=== PATIENT | male | born 1980 | race Caucasian/White ===

== ENCOUNTER 2019-02-17 14:19 | Observation (INO) | payer MEDICAID, SELFPAY ==
[2019-02-17 14:40] VITALS: BMI 25.1
[2019-02-17 14:43] VITALS: BP 109/65; PULSE 73; RESP 16; TEMP 36.7; BMI 25.2
--- NOTE | 2019-02-17 15:07 | HP.PCM_ITS ---
Problem List (1) Opiate withdrawal Status: Acute (2) Hepatitis C Status: Chronic (3) Nicotine abuse Status: Chronic (4) Methamphetamine abuse Status: Chronic (5) Seizure Status: Chronic History of Present Illness Date of Admission: 02/17/19 Chief Complaint: Acute heroin withdrawal The patient is a 38 year old M past medical history of heroin abuse off and on over the past 20 years, also with a history of seizure, hepatitis C never treated, nicotine abuse, and occasional methamphetamine abuse. He presented to the medical stabilization program with acute heroin withdrawal. He is injecting heroin, about 1 g/day, for about the last month, and has bilateral AC area. He last used yesterday about 6 am. He has been through detox before, last was in [place]. He does also admit to using meth, last about 2 days ago. He smokes cigarettes about a half a pack per day and would like a patch. He does not drink alcohol. Current withdrawal symptoms include diarrhea, runny eyes, runny nose, hot and cold flashes, sweating, tremor, anxiety, stomach cramps. He plans to pursue inpatient treatment after discharge. [] Past Medical History Past Medical History (Chronic Problems): Chronic Problems Hepatitis C (Chronic) Nicotine abuse (Chronic) Methamphetamine abuse (Chronic) Seizure (Chronic) Allergies No Known Allergies Allergy (Verified 02/17/19 14:39) Psychiatric History: No pertinent psych hx Lives: Homeless Smoking Status: Current every day smoker Tobacco Use: Cigarettes, Chew Alcohol: None Drugs: Heroin, - - meth - *Family History Maternal History Items: No pertinent history Paternal History Items: No pertinent history Review of Systems Constitutional: Reports: - - hot/cold flashes. Denies: Chills, Fever, Weight Change HEENT: Denies: Head Aches, Sinus Congestion, Sinus Drainage Cardiovascular: Denies: Chest Pain, Palpitations Respiratory: Denies: Cough, Shortness of breath at rest, Sputum production Gastrointestinal: Reports: Diarrhea, - - abd cramping. Denies: Abdominal Pain, Nausea, Vomiting Genitourinary: Denies: Dysuria Musculoskeletal: Reports: - - body aches. Denies: Joint Pain, Joint Tenderness Skin: Denies: Rash, Wounds Neurological: Reports: Tremor. Denies: Focal weakness, Numbness, Tingling Psychiatric: Reports: Anxiety. Denies: Depression, Homicidal Ideations, Suicidal Ideations Hematologic/ Lymphatic: Denies: Easy Bruising, Easy Bleeding VTE Information - Inpt Only VTE Present on Admission: No VTE Mechan Device Prophylaxis: None Reason prophylaxis not ordered:: Procedure Not Indicated Patient Problems: Active and Suspected Problems Opiate withdrawal (Acute) - Physical Exam General: Alert, Oriented x3, Cooperative HEENT: Atraumatic, PERRLA, EOMI, Normocephalic Neck: Supple, No JVD, Negative Carotid Bruits Lungs: Clear to auscultation, Normal air movement Cardiovascular: Regular rate, No murmurs Abdomen: Bowel Sounds Present, Soft, Non Tender Extremities: No edema, Capillary Refill Less than 3 Seconds, - - Bilateral upper extremity injection sites, do not appear acutely infected. Skin: No rashes, No breakdown Musculoskeletal: No Tenderness to Palpation of Joints or Extremities Neurological: Cranial nerves II-XII grossly intact Psych/Mental Status: Normal Affect, Appropriate Weight: 190 lb 11.2 oz Body Mass Index (BMI) 25.1 Assessment/Plan All Active Problems Opiate withdrawal (Acute) 1. Acute heroin withdrawal-uses 1 g/day intravenous, last use yesterday at about 6 AM. He initiate heroin withdrawal protocol. Injection sites not appear infected at this time. 2. Nicotine abuse-1/2 pack/day smoker-desires patch. 3. History of seizures-continue home medications 4. Meth abuse-last used 2 days ago. 5. History of hepatitis C-never treated DVT prophylaxis: Early ambulation Medical stabilization day 1 This patient was seen by Nilesh Escobedo PA-C under the supervision of Doctor Grimes.
[2019-02-17] MEDS: Buprenorphine HCl 2 MG TAB.SUBL SL ×2 (15:11→22:40)
[2019-02-17] MEDS: Ibuprofen 600 MG Tablet PO (15:11)
[2019-02-17] MEDS: Methocarbamol 750 MG Tablet PO ×2 (15:11→22:18)
[2019-02-17 18:05] VITALS: BP 107/72; PULSE 82; RESP 16; TEMP 36.8
[2019-02-17 21:49] VITALS: BP 115/79; PULSE 97; RESP 16; TEMP 36.6
[2019-02-17] MEDS: Acetaminophen 500 MG Tablet PO (22:18)
[2019-02-17] MEDS: levETIRAcetam 250 MG Tablet PO (22:19)
[2019-02-17] MEDS: Pregabalin 75 MG Capsule 150 MG PO (22:19)
[2019-02-17] MEDS: chlordiazePOXIDE 25 MG Capsule PO (22:19)
[2019-02-18 02:00] VITALS: BP 111/73; PULSE 88; RESP 16; TEMP 36.4
[2019-02-18] MEDS: MELATONIN 3 MG TABLET PO ×2 (02:16→22:05)
[2019-02-18] MEDS: Ibuprofen 600 MG Tablet PO ×2 (02:17→10:22)
[2019-02-18 06:00] VITALS: BP 105/58; PULSE 61; RESP 16; TEMP 35.9
[2019-02-18 06:43] VITALS: O2SAT 98
[2019-02-18] MEDS: Buprenorphine HCl 2 MG TAB.SUBL SL ×3 (06:45→22:05)
[2019-02-18] MEDS: Pregabalin 75 MG Capsule 150 MG PO ×3 (06:45→22:04)
[2019-02-18] MEDS: Methocarbamol 750 MG Tablet PO ×3 (08:15→22:04)
[2019-02-18] MEDS: cloNIDine HCl 0.1 MG Tablet PO (08:15)
[2019-02-18] MEDS: Dicyclomine 10 MG Capsule 20 MG PO (08:15)
[2019-02-18] MEDS: Acetaminophen 500 MG Tablet PO (08:15)
[2019-02-18 08:44] VITALS: BP 111/74; PULSE 72; RESP 16; TEMP 36.4
[2019-02-18] MEDS: levETIRAcetam 250 MG Tablet PO ×2 (10:22→22:04)
[2019-02-18] MEDS: chlordiazePOXIDE 25 MG Capsule PO (10:22)
--- NOTE | 2019-02-18 14:54 | PN_ITS ---
Patient Problems: Active and Suspected Problems Opiate withdrawal (Acute) Subjective: Patient is a 38-year-old male with a past medical history of bipolar 2 disorder, polysubstance abuse, nicotine dependence, hepatitis C and a seizure disorder (currently on Keppra and Gabapentin with no seizure for 6 months). He admitted to the PA at admission that he has been using heroin and methamphetamine but he tells me today that he has been using Klonopin he obtains off the street. He last used a few days ago and he has been having visual hallucinations. He has felt suicidal several times over the past year but has not had any suicide attempts. He does not feel like he wants to hurt anyone at the hospital. He feels that if he is to beat the addictions then he needs to put himself in god's hand. He was talking with pastor Carlson when I entered the room. His plan is to go to a [facility] based program at [place]. He was on Wellbutrin but does not have this and would like to have it added to his drug Regimen. He is not currently on a mood stabilizer....has been on Tegretol in the past. No lab was done at admission Having hallucinations. Did not sleep well last night. No diarrhea and no N/V. feeling anxious. Objective: PHYSICAL EXAM: GENERAL: alert, oriented X 3, Cooperative, appears on edge and is a little fidgety ORAL: moist mucosa, no mucosal lesions NECK: No JVD, supple, trachea midline LUNGS: CTA, symmetric chest expansion HEART: RRR, Normal S1 and S2, no rub, no gallop ABDOMEN: soft, NT, ND, BS present, no guarding with palpation, track ray on both UE's....no evidence cellulitis or abscess EXTREMITIES: no edema, no cyanosis, no calf tenderness SKIN: No rashes, no breakdown NEUROLOGIC: no focal neurologic deficits PSYCH: appropriate, normal affect, pleasant, and respectful - Physical Exam Vital Signs Temp Pulse Resp BP Pulse Ox 97.6 F L 72 16 111/74 98 02/18/19 08:44 02/18/19 08:44 02/18/19 08:44 02/18/19 08:44 02/18/19 06:43 Oxygen Delivery Method Room Air Weight: 190 lb 11.198 oz Body Mass Index (BMI) 25.1 Intake and Output for Last 24 Hours 02/16/19 02/17/19 02/18/19 23:59 23:59 23:59 Intake Total 440 / 440 Balance 440 / 440 Medical Necessity - Tobacco Use Smoking Status: Current every day smoker Tobacco Use: Cigarettes, Chew Assessment/Plan All Active Problems Opiate withdrawal (Acute) Impressions 1. acute opiate and benzo withdrawal 2. pt reports he has Bipolar 2 disorder 3. meth use - chronic and heavy for the past 2 years. 4. visual hallucinations - may be due to acute benzo withdrawal 5. Hepatitis C 6. Tobacco dependence 7. Seizure disorder DC chlordiazepoxide Start Klonopin 0.5 mg p.o. every 8 hours and this will need to be tapered over the next few weeks Continue Keppra and Lyrica, gabapentin has been discontinued. He should not be taking both CMP, CBC, hepatitis ABC profile, HIV, urine drug screen Start a low dose of Wellbutrin.......watch for manic sx.......is he truly bipolar or does he have psychosis related to heavy meth use? If the hallucinations do not resolve with Klonopin will consider starting an anti-ps ychotic....like Abilify which will treat atypical depression and chest pain Code Visit Inpatient E&M: 58563 Subs Hosp L2
[2019-02-18 15:22] VITALS: BP 114/67; PULSE 74; RESP 16; TEMP 36.7
[2019-02-18] MEDS: clonazePAM 0.5 MG Tablet PO ×2 (15:26→22:04)
[2019-02-18 15:30] LABS: Absolute Lymphocyte Count 2.43 X10^3/ul (0.83-4.51); Absolute Neutrophil Count 2.6 X10^3/uL (2.0-7.7); Basophil# 0.01 X10^3/uL; Basophil% 0.2 % (0-1); Eosinophil# 0.14 X10^3/uL; Eosinophils% 2.6 % (0-5); Hematocrit 38.8 % (40-54); Hemoglobin 13.4 g/dl (13.0-16.5); Lymphocyte # 2.43 X10^3/ul (4.0); Lymphocyte % 44.4 % (19-41); Mean Corp Hgb Conc 34.5 g/gl (32-36); Mean Corpuscular Hgb 30.7 pg (27.0-32.0); Mean Corpuscular Volume 88.8 fL (80-94); Mean Platelet Vol. 9.1 fl (6.2-12.0); Monocyte# 0.32 X10^3/uL; Monocyte% 5.9 % (0-10); Neutrophil # 2.55 X10^3/uL (2.7-7.7); Neutrophil % 46.5 % (47-70); Platelet Count 198 K/mm3 (150-450); RBC Distribution Width CV 13.4 % (11.6-14.6); RBC Distribution Width SD 43.2 fl (35.1-43.9); Red Blood Count 4.37 M/mm3 (4.6-6.2); White Blood Count 5.5 K/mm3 (4.4-11.0)
[2019-02-18 15:47] LABS: POSITIVE COUNT NO; POSITIVE DIFFERENTIAL NO; POSITIVE MORPHOLOGY NO
[2019-02-18 15:56] LABS: ALB/GLOB Ratio 1.2 RATIO (0.9-2.4); AST(SGOT) 32 U/L (15-37); Alanine Aminotransfer ALT/SGPT 85 U/L (16-61); Albumin, Serum 3.7 g/dL (3.2-5.0); Alkaline Phosphatase 57 U/L (45-117); Anion Gap 5 (5-15); BUN 18 mg/dL (7-18); BUN/Creat Ratio 16.2 RATIO (10-20); Calcium,Total 8.3 mg/dL (8.5-10.1); Chloride 103 mmol/L (98-107); Creatinine, Serum 1.11 mg/dL (0.70-1.30); EST Glomerular Filtration Rate 79 mL/min (>60); Est Glom Filt Rate - Afr Amer 95 mL/min (>60); Estimated Creatinine Clearance 101.97 ml/min; Globulin 3.1 g/dL (2.2-4.2); Glucose 92 mg/dL (74-106); Potassium 3.7 mmol/L (3.5-5.1); Protein, Total 6.8 g/dL (6.4-8.2); Sodium Level 137 mmol/L (136-145)
--- NOTE | 2019-02-18 17:13 | CHAPLAIN ---
Type of Pastoral Visit _x__ Initial Visit ___ Follow-up Visit ___ On-call Visit ___ General Patient Visit ___ Spiritual Assessment ___ Family Conference ___ Bereavement ___ Rapid Response ___ Code Blue ___ Other (describe below) Pastoral Care Referral From _x__ Patient ___ Family ___ Nurse ___ Physician ___ Occupational Therapist Per Diem ___ Personal Injury Specialist ___ Other (describe below) Sacrament/Intervention _x__ Active listening ___ Anointing ___ Amish ___ Bereavement ___ Communion _x__ Michelle exploration ___ _x__ Life review _x__ Prayer ___ Reconciliation ___ Sacrament of Sick _x__ Supportive presence ___ Wedding ___ Other (describe below) Pastoral Comments long conversation of above interventions; contacted previously attended [facility] by leaving a message as requested by patient; gave patient a Bible as requested by pt;
[2019-02-18 21:51] VITALS: BP 106/69; PULSE 81; RESP 16; TEMP 36.3
[2019-02-18] MEDS: buPROPion (SR) 100 MG TABLET.SA PO (22:04)
[2019-02-18 22:48] LABS: Amphetamine Urine VISTA POSITIVE (<1000 ng/mL); Barbiturate Urine VISTA NEGATIVE (< 200 ng/mL); Benzodiazepine Urine VISTA POSITIVE (< 200 ng/mL); Cocaine Urine VISTA NEGATIVE (< 300 ng/mL); Ecstacy Urine VISTA NEGATIVE (< 500 ng/mL); Methadone Urine VISTA NEGATIVE (< 300 ng/mL); PCP Urine VISTA NEGATIVE (< 25 ng/mL); THC Urine VISTA NEGATIVE (< 50 ng/mL); Vista UDS pH Range 6
[2019-02-19 03:34] VITALS: BP 108/65; PULSE 80; RESP 14; TEMP 36.5
[2019-02-19] MEDS: Pregabalin 75 MG Capsule 150 MG PO (06:12)
[2019-02-19] MEDS: Buprenorphine HCl 2 MG TAB.SUBL SL ×2 (06:12→19:09)
[2019-02-19] MEDS: clonazePAM 0.5 MG Tablet PO ×3 (06:12→21:43)
[2019-02-19 08:44] VITALS: BP 115/64; PULSE 74; RESP 16; TEMP 36.4
[2019-02-19] MEDS: levETIRAcetam 250 MG Tablet PO ×2 (09:01→21:43)
[2019-02-19] MEDS: cloNIDine HCl 0.1 MG Tablet PO ×3 (09:01→17:16)
[2019-02-19] MEDS: Ibuprofen 600 MG Tablet PO ×2 (09:01→17:16)
[2019-02-19] MEDS: Methocarbamol 750 MG Tablet PO ×3 (09:01→21:46)
[2019-02-19] MEDS: buPROPion (SR) 100 MG TABLET.SA PO ×2 (09:01→21:43)
--- NOTE | 2019-02-19 12:52 | PN_ITS ---
Patient Problems: Active and Suspected Problems Opiate withdrawal (Acute) Subjective: All events of the past 24 hours of been reviewed. Afebrile with stable vital signs. All lab was personally reviewed. CBC is unremarkable. CMP was remarkable for an ALT of 85. Bilirubin, AST and alkaline phosphatase are all normal. Urine drug screen is positive for amphetamines and benzos. Hepatitis panel is pending. Patient continues to have visual and auditory hallucinations but they are a little less with Klonopin. He has suicidal ideation and at times has had homicidal ideation. Has been off medication to treat BPD Objective: PHYSICAL EXAM: GENERAL: alert, oriented X 3, Cooperative, appears on edge and is a fidgety, got angry when the [facility] rep told him they would not accept him at [facility] if he is on Benzo's and he sat forward in bed and got louder I think he has the potential to be aggressive if provoked. ORAL: moist mucosa, no mucosal lesions NECK: No JVD, supple, trachea midline LUNGS: CTA, symmetric chest expansion HEART: RRR, Normal S1 and S2, no rub, no gallop ABDOMEN: soft, NT, ND, BS present, no guarding with palpation, track ray on both UE's....no evidence cellulitis or abscess EXTREMITIES: no edema, no cyanosis, no calf tenderness SKIN: No rashes, no breakdown NEUROLOGIC: no focal neurologic deficits PSYCH: on Edge, angry - Physical Exam Vital Signs Temp Pulse Resp BP Pulse Ox 97.5 F L 74 16 115/64 98 02/19/19 08:44 02/19/19 08:44 02/19/19 08:44 02/19/19 08:44 02/18/19 06:43 Oxygen Delivery Method Room Air Weight: 190 lb 11.198 oz Body Mass Index (BMI) 25.1 Intake and Output for Last 24 Hours 02/17/19 02/18/19 02/19/19 23:59 23:59 23:59 Intake Total 1200 / 1200 800 / 800 Balance 1200 / 1200 800 / 800 Laboratory Tests Past 24 Hrs 02/18/19 02/18/19 02/18/19 15:15 15:15 15:15 WBC 5.5 RBC 4.37 L Hgb 13.4 Hct 38.8 L MCV 88.8 MCH 30.7 MCHC 34.5 RDW 13.4 RDW Differential 43.2 Plt Count 198 MPV 9.1 Immature Gran % (Auto) 0.400 Neut % (Auto) 46.5 L Lymph % (Auto) 44.4 H Haywood % (Auto) 5.9 Eos % (Auto) 2.6 Baso % (Auto) 0.2 Absolute Neuts (auto) 2.6 Absolute Lymphs (auto) 2.43 Total Counted Not Reportable Sodium 137 Potassium 3.7 Chloride 103 Carbon Dioxide 29.0 Anion Gap 5 BUN 18 Creatinine 1.11 Estim Creat Clear Calc 101.97 Est GFR (MDRD) Af Amer 95 Est GFR (MDRD) Non-Af 79 BUN/Creatinine Ratio 16.2 Glucose 92 Calcium 8.3 L Total Bilirubin 0.40 AST 32 ALT 85 H Alkaline Phosphatase 57 Total Protein 6.8 Albumin 3.7 Globulin 3.1 Albumin/Globulin Ratio 1.2 Urine Opiates Screen Urine Methadone Screen Ur Barbiturates Screen Ur Phencyclidine Scrn Ur Amphetamines Screen U Methamphetamin-MDMA U Benzodiazepines Scrn Urine Cocaine Screen U Cannabinoids Screen Ur Drug Screen Comment Hepatitis A IgM Ab Pending Hepatitis A Ab Total Pending Hep Bs Antigen Pending Hep B Core Total Ab Pending Hep B Core IgM Ab Pending 02/18/19 22:18 WBC RBC Hgb Hct MCV MCH MCHC RDW RDW Differential Plt Count MPV Immature Gran % (Auto) Neut % (Auto) Lymph % (Auto) Haywood % (Auto) Eos % (Auto) Baso % (Auto) Absolute Neuts (auto) Absolute Lymphs (auto) Total Counted Sodium Potassium Chloride Carbon Dioxide Anion Gap BUN Creatinine Estim Creat Clear Calc Est GFR (MDRD) Af Amer Est GFR (MDRD) Non-Af BUN/Creatinine Ratio Glucose Calcium Total Bilirubin AST ALT Alkaline Phosphatase Total Protein Albumin Globulin Albumin/Globulin Ratio Urine Opiates Screen NEGATIVE Urine Methadone Screen NEGATIVE Ur Barbiturates Screen NEGATIVE Ur Phencyclidine Scrn NEGATIVE Ur Amphetamines Screen POSITIVE H U Methamphetamin-MDMA NEGATIVE U Benzodiazepines Scrn POSITIVE H Urine Cocaine Screen NEGATIVE U Cannabinoids Screen NEGATIVE Ur Drug Screen Comment Hepatitis A IgM Ab Hepatitis A Ab Total Hep Bs Antigen Hep B Core Total Ab Hep B Core IgM Ab Medical Necessity - Tobacco Use Smoking Status: Current every day smoker Tobacco Use: Cigarettes, Chew Assessment/Plan All Active Problems Opiate withdrawal (Acute) Impressions 1. acute opiate and benzo withdrawal 2. pt reports he has Bipolar 2 disorder 3. meth use - chronic and heavy for the past 2 years. 4. visual and auditory hallucinations - I believe due to psychosis.....due to BPD or chronic meth use 5. Hepatitis C 6. Tobacco dependence 7. Seizure disorder Continue Klonopin 0.5 mg p.o. every 8 hours-will need to be tapered slowly over the next few weeks Continue Keppra and change Lyrica to Gabapentin D/W Radha from [facility] and we both feel that he is more appropriate for a dual diagnosis facility to stabilize the mental health issues/psychosis prior to being considered for [facility] Continue the Suboxone taper for acute opiate withdrawal Code Visit Inpatient E&M: 58478 Subs Hosp L2
[2019-02-19 13:55] VITALS: BP 111/70; PULSE 75; RESP 18; TEMP 36.4
[2019-02-19 14:00] VITALS: PULSE 80
[2019-02-19] MEDS: Gabapentin 600 MG Tablet PO ×2 (14:41→21:43)
--- NOTE | 2019-02-19 15:27 | CHAPLAIN ---
Type of Pastoral Visit ___ Initial Visit _x__ Follow-up Visit ___ On-call Visit ___ General Patient Visit ___ Spiritual Assessment ___ Family Conference ___ Bereavement ___ Rapid Response ___ Code Blue ___ Other (describe below) Pastoral Care Referral From _x__ Patient ___ Family ___ Nurse ___ Physician ___ Associate Professor Of Chemistry ___ Product Inspection Coordinator ___ Other (describe below) Sacrament/Intervention _x__ Active listening ___ Anointing ___ Judaism ___ Bereavement ___ Communion ___ Michelle exploration ___ ___ Life review _x__ Prayer ___ Reconciliation ___ Sacrament of Sick _x__ Supportive presence ___ Wedding ___ Other (describe below) Pastoral Comments
[2019-02-19 17:10] VITALS: BP 119/68; PULSE 81; RESP 18; TEMP 36.4
[2019-02-19 21:35] VITALS: BP 104/69; PULSE 79; RESP 18; TEMP 36.8
[2019-02-19] MEDS: MELATONIN 3 MG TABLET PO (21:43)
[2019-02-20 05:07] LABS: HEPATITIS B SURFACE AG Negative (Negative); Hepatitis A IgM Antibody Negative (Negative); Hepatitis B Core AB IgM Negative (Negative); Hepatitis B Core Ab Total Negative (Negative); Hepatitis C Ab >11.0 s/co ratio (0.0-0.9)
[2019-02-20] MEDS: Buprenorphine HCl 2 MG TAB.SUBL SL (06:13)
[2019-02-20] MEDS: Gabapentin 600 MG Tablet PO ×3 (06:13→21:15)
[2019-02-20] MEDS: clonazePAM 0.5 MG Tablet PO ×3 (06:13→21:15)
[2019-02-20] MEDS: Methocarbamol 750 MG Tablet PO (08:06)
[2019-02-20] MEDS: Ibuprofen 600 MG Tablet PO (08:06)
[2019-02-20] MEDS: cloNIDine HCl 0.1 MG Tablet PO (08:06)
[2019-02-20] MEDS: levETIRAcetam 250 MG Tablet PO ×2 (08:06→21:15)
[2019-02-20] MEDS: buPROPion (SR) 100 MG TABLET.SA PO ×2 (08:06→21:16)
[2019-02-20 08:11] VITALS: BP 124/71; PULSE 75; RESP 16; TEMP 36.7
--- NOTE | 2019-02-20 11:55 | NEWVISION ---
Addendum entered by Myrna Montez 02/20/19 12:41: Patient will need transportation provided by [facility]. When DC order is in have [facility] . Request hospital discharge ride. Patient's member ID is [id number]. He is going to the following address: [address] [place] [address]. [place] [phone]. Make sure to give NURSE PHONE NUMBER as a contact for [facility] to let you know the ride is here since patient's phone is not working. Original Note: Patient to go to [facility] upon discharge. patient will need to be transported by [facility] discharge services. a nurse to nurse will need to be completed. [facility] requested ETA when patient leaves for admissions. , request admissions.
[2019-02-20 12:43] VITALS: BP 130/72; PULSE 81; RESP 18; TEMP 36.5
[2019-02-20 14:27] LABS: Hep B Surface Antibodies Reactive (.)
[2019-02-20 14:29] LABS: Hepatitis A AB, Total Positive (Negative)
--- NOTE | 2019-02-20 15:22 | DCINST_ITS ---
- Discharge Diagnoses Current Active Problems: Current Active and Chronic Problems Opiate withdrawal (Acute) Hepatitis C (Chronic) Nicotine abuse (Chronic) Methamphetamine abuse (Chronic) Seizure (Chronic) You will use the following diet at home:: No restrictions Discharge Activity: Return to Normal Activity Additional Instructions: Klonopin will need tapered slowly over the next few weeks. Allergies/Adverse Reactions: Allergies No Known Allergies Allergy (Verified 02/17/19 14:39) Medications to take at Discharge Gabapentin 600 mg PO TID 02/17/19 Levetiracetam 250 mg PO BID 02/17/19 Clonazepam [Klonopin] 0.5 mg PO Q8 tablet 02/20/19 Nicotine [Nicoderm Cq] 21 mg TRANSDERM. DAILY patch 02/20/19 buPROPion SR [Wellbutrin Sr] 100 mg PO BID tablet.sa 02/20/19 Primary Care Physician: Care Physician,No Primary [Primary Care Provider] - Please follow up with your Primary Care Physician in: 1 Week following DC from inpatient treatment Test Results: Test results from this visit will be discussed in further detail at your follow- up appointment, if applicable. Proposed Discharge Date: 02/20/19
--- NOTE | 2019-02-20 15:24 | PCM.DC.SUM ---
Discharge Date and Diagnosis Date of Admission: 02/17/19 Date of Discharge: 02/20/19 - Primary Discharge Diagnosis Active and Suspected Problems 1. Acute Opiate and benzodiazepine withdrawal 2. Bipolar 2 disorder 3. Methamphetamine abuse 4. Hepatitis C/Hepatitis A 5. History of seizures 6. Tobacco dependence - Secondary Discharge Diagnosis Chronic Problems Hepatitis C (Chronic) Nicotine abuse (Chronic) Methamphetamine abuse (Chronic) Seizure (Chronic) Hospital Course and Treatment Operations: None Procedures: None Summary of Care Provided: The patient is a 38 year old M admitted 02/17/2019 due to acute heroin withdrawal. 1. Acute Opiate and benzodiazepine withdrawal-patient completed medical stabilization per protocol. DC to [facility]. Patient was started on Klonopin 0.5 mg every 8 hours for benzo withdrawal which will need tapered slowly over the next few weeks. 2. Bipolar 2 disorder-initiated on Wellbutrin. Further management per inpatient psychiatric facility. 3. Methamphetamine abuse 4. Hepatitis C/Hepatitis A-hepatitis panel positive for hepatitis A antibody and hepatitis C antibody. 5. History of seizures-on Keppra and gabapentin for seizure per patient. 6. Tobacco dependence-encouraged tobacco cessation. Nicotine replacement patch. Patient seen and examined prior to discharge. Physical assessment as noted below. Patient is stable for discharge with follow up recommendations as noted above. This patient was seen by MARYANA Ontiveros under the supervision of Dr. Mike. - Physical Exam General: Alert, Oriented x3, Cooperative HEENT: Atraumatic, PERRLA, EOMI, Normocephalic Neck: Supple, No JVD, Negative Carotid Bruits Lungs: Clear to auscultation, Normal air movement Cardiovascular: Regular rate, Regular Rhythm, Normal S1, Normal S2, No murmurs Abdomen: Bowel Sounds Present, Soft, Non Tender, Non-Distended Extremities: No clubbing, No cyanosis, No edema, Capillary Refill Less than 3 Seconds Skin: - - Track ray BL upper extremities. Musculoskeletal: No Tenderness to Palpation of Joints or Extremities Neurological: Cranial nerves II-XII grossly intact, Neuro grossly intact Psych/Mental Status: Impulsive, Restless Vital Signs Temp Pulse Resp BP Pulse Ox 97.7 F L 81 18 130/72 H 98 02/20/19 12:43 02/20/19 12:43 02/20/19 12:43 02/20/19 12:43 02/18/19 06:43 Oxygen Delivery Method Room Air Weight: 190 lb 11.198 oz Body Mass Index (BMI) 25.1 Intake and Output for Last 24 Hours 02/18/19 02/19/19 02/20/19 23:59 23:59 23:59 Intake Total 1200 / 1200 800 / 800 480 / 480 Balance 1200 / 1200 800 / 800 480 / 480 Laboratory Tests Past 24 Hrs 02/18/19 15:15 Hepatitis A IgM Ab Negative Hepatitis A Ab Total Positive H Hep Bs Antigen Negative Hep B Core Total Ab Negative Hep B Core IgM Ab Negative Hepatitis C Ab Confirm >11.0 H Discharge Diet: No Restrictions Discharge Activity: Return to Normal Activity Home Medications: Medications to take at Discharge Gabapentin 600 mg PO TID 02/17/19 Levetiracetam 250 mg PO BID 02/17/19 Clonazepam [Klonopin] 0.5 mg PO Q8 tablet 02/20/19 Nicotine [Nicoderm Cq] 21 mg TRANSDERM. DAILY patch 02/20/19 buPROPion SR [Wellbutrin Sr] 100 mg PO BID tablet.sa 02/20/19 Primary Care Physician: Care Physician,No Primary [Primary Care Provider] - Please follow up with your Primary Care Physician in: 1 Week following DC from inpatient treatment Disposition: Inpatient mental health facility Minutes spent on discharge:: 35 Patient Condition:: Stable Medical Necessity - Tobacco Use Smoking Status: Current every day smoker Tobacco Use: Cigarettes, Chew Meaningful Use Info Meaningful Use Diagnoses (Choose all that apply): None applicable
--- NOTE | 2019-02-20 15:28 | DS.PCM_ITS ---
Addendum entered and electronically signed by MARYANA Ontiveros 02/21/19 14:32: Code Visit Discharge delayed due to difficulty obtaining transportation to inpatient facility. Hospital course and physical examination remains the same as previously documented. Discharge date 02/21/2019. Physical assessment as docu mented below. This patient was seen by MARYANA Ontiveros under the supervision of Dr. Mike. Original Note: Discharge Date and Diagnosis Date of Admission: 02/17/19 Date of Discharge: 02/20/19 - Primary Discharge Diagnosis Active and Suspected Problems 1. Acute Opiate and benzodiazepine withdrawal 2. Bipolar 2 disorder 3. Methamphetamine abuse 4. Hepatitis C/Hepatitis A 5. History of seizures 6. Tobacco dependence - Secondary Discharge Diagnosis Chronic Problems Hepatitis C (Chronic) Nicotine abuse (Chronic) Methamphetamine abuse (Chronic) Seizure (Chronic) Hospital Course and Treatment Operations: None Procedures: None Summary of Care Provided: The patient is a 38 year old M admitted 02/17/2019 due to acute heroin withdrawal. 1. Acute Opiate and benzodiazepine withdrawal-patient completed medical stabilization per protocol. DC to [facility] inpatient. Patient was started on Klonopin 0.5 mg every 8 hours for benzo withdrawal which will need tapered slowly over the next few weeks. 2. Bipolar 2 disorder-initiated on Wellbutrin. Further management per inpatient psychiatric facility. 3. Methamphetamine abuse 4. Hepatitis C/Hepatitis A-hepatitis panel positive for hepatitis A antibody and hepatitis C antibody. 5. History of seizures-on Keppra and gabapentin for seizure per patient. 6. Tobacco dependence-encouraged tobacco cessation. Nicotine replacement patch. Patient seen and examined prior to discharge. Physical assessment as noted below. Patient is stable for discharge with follow up recommendations as noted above. This patient was seen by MARYANA Ontiveros under the supervision of Dr. Mike. - Physical Exam General: Alert, Oriented x3, Cooperative HEENT: Atraumatic, PERRLA, EOMI, Normocephalic Neck: Supple, No JVD, Negative Carotid Bruits Lungs: Clear to auscultation, Normal air movement Cardiovascular: Regular rate, Regular Rhythm, Normal S1, Normal S2, No murmurs Abdomen: Bowel Sounds Present, Soft, Non Tender, Non-Distended Extremities: No clubbing, No cyanosis, No edema, Capillary Refill Less than 3 Seconds Skin: - - Track ray BL upper extremities. Musculoskeletal: No Tenderness to Palpation of Joints or Extremities Neurological: Cranial nerves II-XII grossly intact, Neuro grossly intact Psych/Mental Status: Impulsive, Restless Vital Signs Temp Pulse Resp BP Pulse Ox 97.7 F L 81 18 130/72 H 98 02/20/19 12:43 02/20/19 12:43 02/20/19 12:43 02/20/19 12:43 02/18/19 06:43 Oxygen Delivery Method Room Air Weight: 190 lb 11.198 oz Body Mass Index (BMI) 25.1 Intake and Output for Last 24 Hours 02/18/19 02/19/19 02/20/19 23:59 23:59 23:59 Intake Total 1200 / 1200 800 / 800 480 / 480 Balance 1200 / 1200 800 / 800 480 / 480 Laboratory Tests Past 24 Hrs 02/18/19 15:15 Hepatitis A IgM Ab Negative Hepatitis A Ab Total Positive H Hep Bs Antigen Negative Hep B Core Total Ab Negative Hep B Core IgM Ab Negative Hepatitis C Ab Confirm >11.0 H Discharge Diet: No Restrictions Discharge Activity: Return to Normal Activity Home Medications: Medications to take at Discharge Gabapentin 600 mg PO TID 02/17/19 Levetiracetam 250 mg PO BID 02/17/19 Clonazepam [Klonopin] 0.5 mg PO Q8 tablet 02/20/19 Nicotine [Nicoderm Cq] 21 mg TRANSDERM. DAILY patch 02/20/19 buPROPion SR [Wellbutrin Sr] 100 mg PO BID tablet.sa 02/20/19 Primary Care Physician: Care Physician,No Primary [Primary Care Provider] - Please follow up with your Primary Care Physician in: 1 Week following DC from inpatient treatment Disposition: Inpatient mental health facility Minutes spent on discharge:: 35 Patient Condition:: Stable Medical Necessity - Tobacco Use Smoking Status: Current every day smoker Tobacco Use: Cigarettes, Chew Meaningful Use Info Meaningful Use Diagnoses (Choose all that apply): None applicable
--- NOTE | 2019-02-20 16:17 | NURSING ---
PHONED [phone] DIRECTED IN PRIOR NOTE. SPOKE WITH LUIS WHO TRANSFERRED CALL TO SHERI, WHO THEN TRANSFERED PHONE CALL TO DAHLIA. DAHLIA INDICATES THAT SHE NEEDS FACILITY NPI NUMBER TO MOVE FORWARD WITH ANYTHING FURTHER, INFORMED SAID NURSE UNABLE TO VERIFY FACILITY NPI NUMBER, DAHLIA INDICATES TO HAVE PT PHONE AND ASK TO SPEAK WITH [employer] AND THEN HE WILL BE TRANSFERRED TO TRANSPORTATION DEPARTMENT. NURSE BACK TO PT ROOM TO INFORM PT OF ABOVE- INFORMED PT THAT HE NEEDS TO PHONE INSURANCE COMPANY AND NUMBER PROVIDED TO PT ALONG WITH ADDRESS OF FACILITY PT GOING TO. UPON ENTERING THE ROOM, PT STATES I HAVE SOME MEDS IN THE [place]. SAID NURSE LOOKED IN MED [place]RAW[place]- NO HOME MEDICATIONS IN EITHER [place] AND PT INFORMED OF SUCH, PT STATES 'WELL SOMEONE WAS IN IN [place] AND SAID I HAD MEDS TO TAKE HOME WITH ME. INFORMED PT THAT MEDS IN [place] ARE NOT FOR PT TO TAKE HOME WITH HIM AND ACCORDING TO MAR NEXT SCHEDULED MEDS ARE NOT DUE UNTIL 2200, PT STATES I MIGHT WELL GO GET HEROIN. I HAVE FELT LIKE SHIT ALL FUCKING DAY. THE LADY WHO WAS IN HERE [place] SAID SHE WAS GOING TO SEND ME HOME WITH SUBUTEX AND SOME KLONOPIN OR SOMETHING ELSE. INFORMED PT THAT NO SCRIPTS WRITTEN ON CHART FOR EITHER MEDICATION, PT SITS UP IN BED, RAISED VOICE AND SAYS I HAVE FELT LIKE SHIT ALL DAY LONG, THIS IS FUCKING RIDICULOUS. [facility] [employer] [facility], PT THEN PICKS UP HOSPITAL PHONE AND REQUESTS REFRIGERATION LEAD CONNECT HIM TO AN OUTSIDE NUMBER, SAID NURSE REMAINS IN ROOM. PT SPEAKS TO SOMEONE BRIEFLY AND THEN STATES HE IS GOING TO CALL THEM BACK AND HANGS UP PHONE. PT STATES TO NURSE I NEED SOME PRIVACY PLEASE. INFORMED PT THAT PRIVACY WILL BE GIVEN- AND NURSE PRESENT IN ROOM TO INFORM PT THAT WHAT EVER DECISION HE MAKES TO PLEASE LET NURSES KNOW OF HIS DECISION. MALE STATES THIS IS FUCKING RIDICULOUS, SO I AM SUPPOSED TO FEEL LIKE SHIT UNTIL I GET SOMEWHERE ELSE, DO YOU KNOW HOW LONG IT TAKES MY INSURANCE COMPANY TO GET HERE. REFLECTED BACK TO PT- INQUIRED IF PERSON HE WAS SPEAKING TO ON THE PHONE CAN ASSIST IN TRANSPORTATION- PT STATES NO THEY ARE NOT FROM [place]. PT AGREEABLE TO LET NURSING STAFF KNOW WHAT HIS DECISION IS. BLU PRIMARY RN AWARE. DR PARRA UP TO SEE PT WELL AND IS AWARE OF SITUATION.
--- NOTE | 2019-02-20 17:49 | NURSING ---
PHONED AND SPOKE WITH KAYLIE AT [facility] TO INFORM THEM THAT PT RIDE HAS UNTIL 2013 TO ARRIVE TO PICK HIM UP AND TRANSPORT HIM DOWN TO FACILITY. VERBALIZES UNDERSTANDING. PT UPDATED WELL
[2019-02-20 22:00] VITALS: BP 130/68; PULSE 79; RESP 16; TEMP 36.8
[2019-02-21] MEDS: Methocarbamol 750 MG Tablet PO (01:21)
[2019-02-21] MEDS: cloNIDine HCl 0.1 MG Tablet PO (01:21)
[2019-02-21] MEDS: MELATONIN 3 MG TABLET PO (01:21)
[2019-02-21 02:00] VITALS: BP 125/59; PULSE 83; RESP 16; TEMP 36.8
--- NOTE | 2019-02-21 03:15 | NURSING ---
Called [facility] phone number provided in note to ask about transportation because the patient was supposed to be gone by 20:15 on 02/20. Was on phone with [facility] trying to figure out why they hadn't picked the patient up. They stated they tried to pick him up twice but was unsuccessful d/t a wrong address given of [facility]. The school boat driver was driving to [place]. After two attempted call made to the patient, who has a cell phone that isn't working, they gave up. This RN arranged for another requested discharge ride but the patient had to be added to a list d/t a shortage of drivers tonight. Marlynrobbie states they are unable to tell this RN a time of merchandise pickup/receiving associate.
--- NOTE | 2019-02-21 03:31 | NURSING ---
Call for ETA for pt pickup. Spoke with phone representative from [facility] transport [phone], she states that there is only vehicle, and that is in [facility] at this time. The only other option was to order a lift for transport. The [facility] rep resubmitted request for lift transport and will see what happens.
[2019-02-21 05:52] VITALS: RESP 16
[2019-02-21] MEDS: clonazePAM 0.5 MG Tablet PO (05:53)
[2019-02-21] MEDS: Gabapentin 600 MG Tablet PO (05:53)
[2019-02-21 09:37] VITALS: BP 98/50; PULSE 68; RESP 16; TEMP 36.6
[2019-02-21] MEDS: buPROPion (SR) 100 MG TABLET.SA PO (09:43)
[2019-02-21] MEDS: levETIRAcetam 250 MG Tablet PO (09:43)
[2019-02-21 10:44] VITALS: BP 98/50; PULSE 68; RESP 20; TEMP 36.6; O2SAT 98
--- NOTE | 2019-02-21 14:35 | PCM.PROGNOTE ---
Subjective: Patient seen and examined. Plan to discharge today where he will be admitted into inpatient psychiatric treatment facility however transportation was not able to be arranged. Progress note and assessment completed 02/20/2019. - Physical Exam General: Alert, Oriented x3, Cooperative HEENT: Atraumatic, PERRLA, EOMI, Normocephalic Neck: Supple, No JVD, Negative Carotid Bruits Lungs: Clear to auscultation, Normal air movement Cardiovascular: Regular rate, Regular Rhythm, Normal S1, Normal S2, No murmurs Abdomen: Bowel Sounds Present, Soft, Non Tender, Non-Distended Extremities: No clubbing, No cyanosis, No edema, Capillary Refill Less than 3 Seconds Skin: - - Track ray bilateral upper extremities Musculoskeletal: No Tenderness to Palpation of Joints or Extremities Neurological: Cranial nerves II-XII grossly intact, Neuro grossly intact Psych/Mental Status: Anxious, Impulsive Vital Signs Temp Pulse Resp BP Pulse Ox 98 F 68 20 H 98/50 L 98 02/21/19 10:44 02/21/19 10:44 02/21/19 10:44 02/21/19 10:44 02/21/19 10:44 Oxygen Delivery Method Room Air Weight: 190 lb 11.198 oz Body Mass Index (BMI) 25.1 Intake and Output for Last 24 Hours 02/19/19 02/20/19 02/21/19 23:59 23:59 23:59 Intake Total 800 / 800 480 / 480 Balance 800 / 800 480 / 480 Medical Necessity - Tobacco Use Smoking Status: Current every day smoker Tobacco Use: Cigarettes, Chew Assessment/Plan All Active Problems Opiate withdrawal (Acute) 1. Acute Opiate and benzodiazepine withdrawal-patient completed medical stabilization per protocol. DC to [facility] inpatient. Patient was started on Klonopin 0.5 mg every 8 hours for benzo withdrawal which will need tapered slowly over the next few weeks. 2. Bipolar 2 disorder-initiated on Wellbutrin. Further management per inpatient psychiatric facility. 3. Methamphetamine abuse 4. Hepatitis C/Hepatitis A-hepatitis panel positive for hepatitis A antibody and hepatitis C antibody. 5. History of seizures-on Keppra and gabapentin for seizure per patient. 6. Tobacco dependence-encouraged tobacco cessation. Nicotine replacement patch. This patient was seen by MARYANA Ontiveros under the supervision of Dr. Mike.
--- OUTSIDE RECORDS SUMMARY | 2019-05-19 18:19 | XMS RPT_ITS | CCD ---
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 REACTIVE NR Abnormal 01-27-2019 [facility] (43826) Comment: Result Comment: The hepatitis C procedure us ed in our laboratory is a Chemiluminescent test specific for three recombina nt HCV antigens. A negative anti-HCV result indicates that the antibodie s to hepatitis C virus are not present at this time. Individuals with reactive an ti-HCV should be considered infected and infectious until proven otherwise. Conf irmation of all equivocal or reactive results is recommended by ordering HCV RNA by PCR. Results reported to the [facility] Performed By: #### CDP, CP # ### [facility] [address] [place] [address] No panel information on 2019-04-08 [facility] - 04-08-20 19 [facility] ([id number]) Patient Name: Alex Erwin Procedure Date: 04/08/2019 1:12 PM Date of : 1980 Admit Type: Emergency Department Age: 38 Room: Procedure Room #1 Gender: Male Note Status: Finalized Attending MD: Brian Gannon MD Instrument Name: [id number] - GIF [id number] Procedure: Upper GI endoscopy Indications: Foreign body in the small bowel Providers: Brian Gannon MD Complications: No immediate complications. Estimated blood loss: None. Procedure: After obtaining informed consent, the endoscope was passed under direct vision. Throughout the procedure, the patient's blood pressure, pulse, and oxygen saturations were monitored continuously. CO2 was used. The Endoscope was introduced through the mouth, and advanced to the second part of duodenum. The upper GI endoscopy was accomplished with ease. The patient tolerated the procedure well. Findings: Non-severe esophagitis with no bleeding was found. Localized mildly erythematous mucosa without bleeding was found in the prepyloric region of the stomach. A foreign body was found in the second portion of the duodenum. Removal of rubber coating of a pen surrounded by headphone wire was accomplished with a rat-toothed forceps. Estimated blood loss: none. After removal, the mucosa was intact and uninjured. Impression: - Non-severe non-erosive esophagitis. - Erythematous mucosa in the prepyloric region of the stomach. - Duodenal foreign body. Removal was successful. Recommendation: - Discharge patient to home (ambulatory). - Patient has a contact number available for emergencies. The signs and symptoms of potential delayed complications were discussed with the patient. Return to normal activities tomorrow. Written discharge instructions were provided to the patient. - Resume previous diet. - Continue present medications. Procedure Code(s): --- Professional --- 24078, Esophagogastroduodenosco py, flexible, transoral; with removal of foreign body(s) Diagnosis Code(s): --- Professional --- K20.8, Other esophagitis T18.3XXA, Foreign body in small intestine, initial encounter CPT copyright 2018 [employer]. All rights reserved. The codes documented in this report are preliminary and upon photovoltaic solar cell designer review may be revised to meet current compliance requirements. MD Brian Blanco MD 04/08/2019 2:23:28 PM This report has been signed electronically. Number of Addenda: 0 Note Initiated On: 04/08/2019 1:12 PM Amphetamine mass NEGATIVE NEGATIVE NG/ML 04-08-20 [facility] (U) (98770) Comment: <500 ng/ml CUTOFF Barbiturates Screen Ql (U) NEGATIVE NEGATIVE NG/ML 04-08-2019 [facility] (15754) Comment: <200 ng/ml CUTOFF Benzodiazepines Ql (U) NEGATIVE NEGATIVE NG/ML [facility] (34881) Comment: <150 ng/ml CUTOFF Benzoylecgonine Ql (U) NEGATIVE NEGATIVE NG/ML [facility] (26462) Comment: <150 ng/ml CUTOFF Buprenorphine Ql (U) NEGATIVE NEGATIVE NG/ML 03-25 [facility] (91790) Comment: <10 ng/ml CUTOFF Cannabinoids Screen Ql (U) NEGATIVE NEGATIVE NG/ML 04-08-2019 [facility] (72352) Comment: <50 ng/ml CUTOFF Methadone Screen Ql (U) NEGATIVE NEGATIVE NG/ML 0 04-08-2019 [facility] (48364) Comment: <200 ng/ml CUTOFF Methamphetamine mass conc NEGATIVE NEGATIVE NG/ML 04-08-2019 [facility] (U) (07974) Comment: <500 ng/ml CUTOFF Opiates Screen Ql (U) NEGATIVE NEGATIVE NG/ML [facility] (74143) Comment: <100 ng/ml CUTOFF Oxycodone Ql (U) NEGATIVE NEGATIVE NG/ML 04-08-20 19 [facility] (65236) Comment: <100 ng/ml CUTOFF Phencyclidine Screen NEGATIVE NEGATIVE NG/ML 03-25 [facility] (43146) method >25 ng/mL Ql (U) Comment: <25 ng/ml CUTOFF Propoxyphene + NEGATIVE NEGATIVE NG/ML 04-08-2019 [facility] Norpropoxyphene Screen Ql (64315) (U) Comment: <300 ng/ml CUTOFF Tricyclic antidepressants NEGATIVE NEGATIVE NG/ML 04-08-2019 [facility] Screen Ql (U) (46935 ) Comment: <300 ng/ml CUTOFF Bilirubin Ql (U) NEGATIVE NEGATIVE 04-08-2019 [facility] (31887) Clarity Nom (U) CLEAR CLEAR 04-08-2019 [facility] (66904) Color Nom (U) YELLOW YELLOW 04-08-2019 [facility] (11328) Glucose Test strip NEGATIVE NEGATIVE 04-08-2019 [facility] mass conc (U) mg/dl [facility] (33655) Hemoglobin Ql (U) NEGATIVE NEGATIVE 04-08-2019 [facility] (72386) Interpretation and Abnormal 04-08-2019 [facility] laboratory results ( 83154) Ketones mass conc NEGATIVE NEGATIVE 04-08-2019 [facility] (U) mg/dl [facility] (92351) Leukocyte esterase NEGATIVE NEGATIVE 04-08-2019 [facility] Test strip Ql (U) [facility] (29653) Nitrite Ql (U) NEGATIVE NEGATIVE 04-08-2019 [facility] (78226) pH (U) 7.5 OTH - OTH [pH High 04-08-2019 [facility] (54167) Protein Ql (U) NEGATIVE NEGATIVE 04-08-2019 [facility] mg/dl [facility] (70238) Specific gravity 1.015 OTH - OTH 04-08-2019 [facility] Relative Density HEA LTH (U) (12657) Urobilinogen mass 0.2 0.2 - 1 mg/ 04-08-2019 [facility] conc (U) dl [facility] (98740) CT ABDOMEN/PELVIS 04-08-2019 [facility] WITH CONTRAST [facility] (50318) STATEMENT: Swallowed foreign body. COMPARISON: None. TECHNIQUE: CT examination of the abdomen and pelvis following the administration of 75 mL Omnipaque 350 intravenous contrast. Coronal and sagittal reformations were performed. Dose reduction techniques were achieved by using automated exposure control and/or adjustment of mA and/or kV according to patient size and/or use of iterative reconstruction technique. FINDINGS: The lung bases are clear. Lower mediastinal structures are normal. The liver is normal in size and appearance. Portal vessels are patent. The spleen is normal in size and appearance. The adrenal glands, pancreas, gallbladder are normal. The kidneys are symmetric in size and show symmetric enhancement. No calcifications are seen and there is no hydronephrosis on either side. The aorta has a normal course and caliber.. The large and small bowel are normal, including a well-seen appendix in the right lower quadrant. There is a 9.8 cm long metallic foreign body spanning the first and second portions of the duodenum. Pelvic organs are grossly normal. Urinary bladder is grossly normal. There is no free air or free fluid and no inflammatory stranding is seen. Osseous structures are unremarkable. IMPRESSION: No 04-08-2019 [facility] acute process. No HE ALTH abnormality is (0000 0) seen to account for the symptoms. IMPRESSION: The foreign body spans the first and second portions of the duodenum. The rest of the study is unremarkable. User, Interfaces - 04/08/2019 11:[address] ABDOMEN/PELV IS WITH CONTRAST 04-08-2019 [facility] STATEMENT: Swallowed foreign body. (57224) COMPARISON: None. TECHNIQUE: CT examination of the abdomen and pelvis followin g the administration of 75 mL Omnipaque 350 intravenous contrast. Coronal and sagittal reformations were performed. Dose reduction techniques were achieved by using automated exposure control and/or adjustment of mA and/or kV according to patient size and/or use of iterative reconstruction technique. FINDINGS: The lung bases are clear. Lower mediastinal structures are normal. The liver is normal in size and appearance. Portal vessels a re patent. The spleen is normal in size and appearance. The adrenal glands, pancreas, gallbladder are normal. The kidneys are symmetric in size and show symmetric enhance ment. No calcifications are seen and there is no hydronephrosis on ei ther side. The aorta has a normal course and caliber.. The large and small bowel are normal, including a well-see n appendix in the right lower quadrant. There is a 9.8 cm long metallic foreign body spanning the first and second portions of the duodenum. Pelvic organs are grossly normal. Urinary bladder is grossly normal. There is no free air or free fluid and no inflammatory stran ding is seen. Osseous structures are unremarkable. IMPRESSION IMPRESSION: No acute process. No abnormality is seen to acco unt for the symptoms. IMPRESSION: The foreign body spans the first and sec ond portions of the duodenum. The rest of the study is unremarkable. Interpretation and Abnormal 04-08-2019 [facility] laboratory results ( 39114) Lactate molar conc 2.2 OTH - OTH mmo Critically 04-08-2019 [facility] l/L high [facility] (43835) Comment: PLEASE REPEAT INITIAL CRITIC AL IN 3 HOURS IF ED OR INPATIENT SEPSIS PATIENT Result called to read back b y: Burak HERNANDEZ 04/08/2019 @ 10:28 by [facility] ABSOLUTE BASOPHIL 0.0 X10 04-08-2019 [facility] COUNT (22498) Albumin mass conc 4.9 3.5 - 5 G/dl 04-08-2019 [facility] (47470) Albumin/Globulin 1.8 OTH - OTH {ratio} 04-08-2019 [facility] mass ratio (95237) ALP enzyme act/vol 57 OTH - OTH U/L 04-08-2019 [facility] (12726) ALT enzyme act/vol 55 OTH - OTH U/L 04-08-2019 [facility] (13963) AST enzyme act/vol 29 OTH - OTH U/L 04-08-2019 [facility] (57498) Basophils/100 WBC 0.7 0 - 2 % 04-08-2019 [facility] (Bld) (42241) Bilirubin mass conc 1.0 OTH - OTH mg/dL 04-08-2019 [facility] (72643) Calcium mass conc 9.5 OTH - OTH mg/dL 04-08-2019 [facility] (49846) Chloride molar conc 103 OTH - OTH mmol/L 04-08-2019 [facility] (47908) CO2 molar conc 28 OTH - OTH mmol/L 04-08-2019 [facility] (21151) Creatinine mass conc 1.19 OTH - OTH 9 [facility] (53595) Differential cell AUTO DIFF % 04-08-2019 [facility] count method Nom (00 000) (Bld) Eosinophils #/vol 0.00 X10 10*3/uL 04-08-2019 [facility] (Bld) (84309) Eosinophils/100 WBC 0.9 0 - 11 % 04-08-2019 [facility] (Bld) (32606) Erythrocyte 14.6 11.5 - 14.5 % High 04-08-2019 [facility] distribution width ( 60261) Ratio (RBC) GFR/1.73 sq M >60 ml/min/1.73 mL/min/{ 04-08-2019 [facility] predicted among sq.m 1.73_m2} (000 00) blacks MDRD vol rate/area (S/P/Bld) GFR/1.73 sq M >60 ml/min/1.73 mL/min/{ 04-08-2019 [facility] predicted among sq.m 1.73_m2} (000 00) non-blacks MDRD vol rate/area (S/P/Bld) GFR/1.73 sq M Average GFR for 04-08-2019 [facility] predicted among 30-39 years old (29377) non-blacks MDRD vol = 109. rate/area (S/P/Bld) Comment: Chronic Kidney disease, GFR = <60. Kidney failure, GFR = <15. The GFR estimate is not adju sted for extreme body surface area or acute process, nor has it been validated for women or ethnic groups other than and . Glucose fasting mass conc 84 OTH - OTH mg/dL 03-25 [facility] (20828) Comment: NORMAL <100 mg/dL PREDIABETES 101-126 mg/dL DIABETES 126 mg/dL or higher Hematocrit Volume 41.2 42 - 52 % Low 04-08-2019 [facility] Fraction (Bld) (0000 0) Hemoglobin mass conc 14.6 OTH - OTH g/dL 9 [facility] (Bld) (88615) Interpretation and review Abnormal 03-25 [facility] of laboratory results (68364) Lymphocytes #/vol (Bld) 1.10 X10 10*3/uL 2018 [facility] (90826) Lymphocytes/100 WBC (Bld) 23.7 20 - 55 % 03-25 [facility] (85090) MCH Entitic mass (RBC) 31.4 26 - 35 PG 019 [facility] (41706) MCHC mass conc (RBC) 35.4 OTH - OTH g/dL 9 [facility] (69712) MCV Entitic volume (RBC) 88.8 OTH - OTH fL 04-08 [facility] (85402) Monocytes #/vol (Bld) 0.4 X10 10*3/uL 04-08-20 19 [facility] (49891) Monocytes/100 WBC (Bld) 9.3 0 - 10 % 2018 [facility] (32600) Neutrophils #/vol (Bld) 3.0 OTH - OTH 10*3/uL 2018 [facility] (68123) Neutrophils/100 WBC (Bld) 65.4 37 - 75 % 03-25 [facility] (62993) Platelet mean volume 7.7 OTH - OTH fL 9 [facility] Entitic volume (Bld) (17909) Platelets #/vol (Bld) 175 OTH - OTH 10*3/uL 04-08-20 19 [facility] (08282) Potassium molar conc 4.2 OTH - OTH mmol/L 9 [facility] (07506) Protein mass conc 7.7 OTH - OTH g/dL 04-08-2019 [facility] (32797) RBC #/vol (Bld) 4.64 OTH - OTH 10*6/uL 04-08-2019 [facility] (47204) Sodium molar conc 140 OTH - OTH mmol/L 04-08-2019 [facility] (38659) Urea nitrogen mass conc 16 OTH - OTH mg/dL 2018 [facility] (08905) WBC #/vol (Bld) 4.7 OTH - OTH 10*3/uL 04-08-2019 [facility] (54148) ct abdomen/pelvis with contrast on 2019-04-08 CT ABDOMEN/PELVIS WITH CT ABDOMEN/PELVIS WITH CONTRAST Normal 04-08-2019 [facility] CONTRAST CLINICAL STATEMENT: Swallowed foreign body. Hospital (21348) COMPARISON: None. TECHNIQUE: CT examination of the abdomen and pelvis followin g the administration of 75 mL Omnipaque 350 intravenous contrast. Coronal and sagittal reformations were performed. Dose reduction techniques were achieved by using automated exposure control and/or adjustment of mA and/or kV according to patient size and/or use of iterative reconstruction technique. FINDINGS: The lung bases are clear. Lower mediastinal structures are normal. The liver is normal in size and appearance. Portal vessels a re patent. The spleen is normal in size and appearance. The adrenal glands, pancreas, gallbladder are normal. The kidneys are symmetric in size and show symmetric enhance ment. No calcifications are seen and there is no hydronephrosis on ei ther side. The aorta has a normal course and caliber.. The large and small bowel are normal, including a well-see n appendix in the right lower quadrant. There is a 9.8 cm long metallic foreign body spanning the first and second portions of the duodenum. Pelvic organs are grossly normal. Urinary bladder is grossly normal. There is no free air or free fluid and no inflammatory stran ding is seen. Osseous structures are unremarkable. IMPRESSION: No acute process. No abnormality is seen to acco unt for the symptoms. IMPRESSION: The foreign body spans the first and sec ond portions of the duodenum. The rest of the study is unremarkable. lactic acid on 2018 Lactate molar conc 2.2 0.5-2.0 MMOL/L Critically high 04-08 [facility] ( 17573) Comment: Result Comment: PLEASE REPEA T INITIAL CRITICAL IN 3 HOURS IF ED OR INPATIENT SEPSIS PATIENT Result called to read back b y: L DAVID 04/08/2019 @ 10:28 by [facility] Performed By: #### LACT #### Testing performed at [address] [address] cmp fasting on 2018 A:G RATIO 1.8 1.3-2.2 RATIO Normal 04-08-2019 [facility] (19638) Comment: Performed By: #### ACBC, CMP F #### Testing performed at [address] [address] Albumin mass conc 4.9 3.5-5.0 G/dl Normal 04-08-2019 [facility] (03593) Comment: Performed By: #### ACBC, CMP F #### Testing performed at [address] [place] [address] ALP enzyme act/vol 57 38-126 IU/L Normal 04-08-2019 [facility] (34186) Comment: Performed By: #### ACBC, CMP F #### Testing performed at [address] [place] [address] ALT enzyme act/vol 55 17-63 IU/L Normal 04-08-2019 [facility] (27666) Comment: Performed By: #### ACBC, CMP F #### Testing performed at [address] [place] [address] AST enzyme act/vol 29 15-41 IU/L Normal 04-08-2019 [facility] (30262) Comment: Performed By: #### ACBC, CMP F #### Testing performed at [address] [place] [address] Bilirubin mass conc 1.0 0.2-1.2 MG/DL Normal 04-08-2019 [facility] (67190) Comment: Performed By: #### ACBC, CMP F #### Testing performed at [address] [place] [address] Creatinine mass conc 1.19 0.66-1.25 MG/DL Normal [facility] (32545) Comment: Performed By: #### ACBC, CMP F #### Testing performed at [address] [place] [address] EST. GFR, >60 Normal 03-25 [facility] (74871) Comment: Performed By: #### ACBC, CMP F #### Testing performed at [address] [place] [address] EST. GFR,Non >60 Normal 04-08-2019 [facility] (77528) Comment: Performed By: #### ACBC, CMP F #### Testing performed at [address] [place] [address] GFR/1.73 sq M predicted Average GFR for Normal 04-08-2019 [facility] among non-blacks MDRD 30-39 years old = Hospital (36755) vol rate/area (S/P/Bld) 109. Comment: Result Comment: Chronic Kidn ey disease, GFR = <60. Kidney failure, GFR = <15. The GFR estimate is not adju sted for extreme body surface area or acute process, nor has it been validated for women or ethnic groups other than and . Performed By: #### ACBC, CMP F #### Testing performed at [address] [address] Protein mass conc 7.7 6.3-8.2 GM/DL Normal 04-08-2019 [facility] (25650) Comment: Performed By: #### ACBC, CMP F #### Testing performed at [address] [address] Urea nitrogen mass conc 16 7-20 MG/DL Normal 2018 [facility] (25445) Comment: Performed By: #### ACBC, CMP F #### Testing performed at [address] [address] Calcium mass conc 9.5 8.4-10.2 MG/DL Normal 04-08-2019 [facility] (60753) Comment: Performed By: #### ACBC, CMP F #### Testing performed at [address] [address] Chloride molar conc 103 98-107 MMOL/L Normal 04-08-2019 [facility] (11031) Comment: Performed By: #### ACBC, CMP F #### Testing performed at [address] [address] CO2 molar conc 28 22-30 MMOL/L Normal 04-08-2019 [facility] (42302) Comment: Performed By: #### ACBC, CMP F #### Testing performed at [address] [address] Glucose mass conc 84 70-100 MG/DL Normal 04-08-2019 [facility] (92995) Comment: Result Comment: NORMAL <100 mg/dL PREDIABETES 101-126 mg/dL DIABETES 126 mg/dL or higher Performed By: #### ACBC, CMP F #### Testing performed at [address] [place] [address] Potassium molar conc 4.2 3.5-5.1 MMOL/L Normal 9 [facility] (15503) Comment: Performed By: #### ACBC, CMP F #### Testing performed at [address] [place] [address] Sodium molar conc 140 136-145 MMOL/L Normal 04-08-2019 [facility] (27556) Comment: Performed By: #### ACBC, CMP F #### Testing performed at [address] [place] [address] cbc on 2019-04-08 ABSOLUTE BAS 0.0 X10 Normal 04-08-2019 [facility] (63481) Comment: Performed By: #### ACBC, CMP F #### Testing performed at [address] [place] [address] ABSOLUTE EOS 0.00 X10 Normal 04-08-2019 [facility] (97281) Comment: Performed By: #### ACBC, CMP F #### Testing performed at [address] [place] [address] ABSOLUTE NEUTROPHIL COUNT 3.0 1.0-7.0 x10 Normal 03-25 [facility] (53803) Comment: Performed By: #### ACBC, CMP F #### Testing performed at [address] [place] [address] Basophils/100 WBC (Bld) 0.7 0.0-2.0 % Normal 2018 [facility] (36356) Comment: Performed By: #### ACBC, CMP F #### Testing performed at [address] [place] [address] DTYPE AUTO DIFF Normal 04-08-2019 [facility] (93167) Comment: Performed By: #### ACBC, CMP F #### Testing performed at [address] [place] [address] Eosinophils/100 WBC (Bld) 0.9 0.0-11.0 % Normal 03-25 [facility] (33029) Comment: Performed By: #### ACBC, CMP F #### Testing performed at [address] [place] [address] Lymphocytes #/vol (Bld) 1.10 X10 Normal 2018 [facility] (98604) Comment: Performed By: #### ACBC, CMP F #### Testing performed at [address] [address] Lymphocytes/100 WBC (Bld) 23.7 20.0-55.0 % Normal 03-25 [facility] (99704) Comment: Performed By: #### ACBC, CMP F #### Testing performed at [address] [address] Monocytes #/vol (Bld) 0.4 X10 Normal 04-08-20 19 [facility] (78900) Comment: Performed By: #### ACBC, CMP F #### Testing performed at [address] [address] Monocytes/100 WBC (Bld) 9.3 0.0-10.0 % Normal 2018 [facility] (77650) Comment: Performed By: #### ACBC, CMP F #### Testing performed at [address] [address] Neutrophils/100 WBC (Bld) 65.4 37.0-75.0 % Normal 03-25 [facility] (92889) Comment: Performed By: #### ACBC, CMP F #### Testing performed at [address] [place] [address] Erythrocyte distribution 14.6 11.5-14.5 % High 04-08 [facility] width Ratio (RBC) (0 0000) Comment: Performed By: #### ACBC, CMP F #### Testing performed at [address] [place] [address] Hematocrit Volume Fraction 41.2 42.0-52.0 % Low [facility] (Bld) (62729) Comment: Performed By: #### ACBC, CMP F #### Testing performed at [address] [place] [address] Hemoglobin mass conc 14.6 14.0-18.0 G/DL Normal 9 [facility] (d) (26010) Comment: Performed By: #### ACBC, CMP F #### Testing performed at [address] [address] MCH Entitic mass (RBC) 31.4 26.0-35.0 PG Normal 019 [facility] (49993) Comment: Performed By: #### ACBC, CMP F #### Testing performed at [address] [address] MCHC mass conc (RBC) 35.4 27.0-37.0 G/DL Normal 9 [facility] (50741) Comment: Performed By: #### ACBC, CMP F #### Testing performed at [address] [address] MCV Entitic volume (RBC) 88.8 80.0-100.0 FL Normal 03-25 [facility] (69315) Comment: Performed By: #### ACBC, CMP F #### Testing performed at [address] [address] Platelet mean volume 7.7 7.4-11.0 FL Normal 9 [facility] Entitic volume (Bld) (78608) Comment: Performed By: #### ACBC, CMP F #### Testing performed at [address] [address] Platelets #/vol (Bld) 175 130.0-400.0 /cmm Normal 2018 [facility] (25942) Comment: Performed By: #### ACBC, CMP F #### Testing performed at [address] [address] RBC #/vol (Bld) 4.64 4.0-6.1 /cmm Normal 04-08-2019 [facility] (07350) Comment: Performed By: #### ACBC, CMP F #### Testing performed at [address] [place] [address] WBC #/vol (Bld) 4.7 3.6-11.0 /cmm Normal 04-08-2019 [facility] (31825) Comment: Performed By: #### ACBC, CMP F #### Testing performed at [address] [place] [address] urine macroscopic o n 2019-04-08 Bilirubin Ql (U) NEGATIVE NEGATIVE Normal 04-08-2019 [facility] (15117) Comment: Performed By: #### UMAC #### Testing performed at [address] [place] [address] Clarity Nom (U) CLEAR CLEAR Normal 04-08-2019 [facility] (43344) Comment: Performed By: #### UMAC #### Testing performed at [address] [address] Color Nom (U) YELLOW YELLOW Normal 04-08-2019 [facility] (47929) Comment: Performed By: #### UMAC #### Testing performed at [address] [place] [address] Glucose Ql (U) NEGATIVE NEGATIVE Normal 04-08-2019 [facility] (83688) Comment: Performed By: #### UMAC #### Testing performed at [address] [place] [address] pH (U) 7.5 5.0-7.0 [pH] High 04-08-2019 [facility] (77117) Comment: Performed By: #### UMAC #### Testing performed at [address] [place] [address] Protein mass conc (U) NEGATIVE NEGATIVE mg/dL Normal 04-08-20 19 [facility] (29347) Comment: Performed By: #### UMAC #### Testing performed at [address] [place] [address] URINE HEMOGLOBIN NEGATIVE NEGATIVE Normal 04-08-2019 [facility] (72829) Comment: Performed By: #### UMAC #### Testing performed at [address] [place] [address] URINE KETONE NEGATIVE NEGATIVE Normal 04-08-2019 [facility] (50807) Comment: Performed By: #### UMAC #### Testing performed at [address] [address] URINE LEUKOTEST NEGATIVE NEGATIVE Normal 04-08-2019 [facility] (55139) Comment: Performed By: #### UMAC #### Testing performed at [address] [address] URINE NITRATES NEGATIVE NEGATIVE Normal 04-08-2019 [facility] (44266) Comment: Performed By: #### UMAC #### Testing performed at [address] [address] URINE SPEC GRAVITY 1.015 1.010-1.025 Normal 9 [facility] (64035) Comment: Performed By: #### UMAC #### Testing performed at [address] [address] Urobilinogen Qn (U) 0.2 0.2-1.0 mg/dl Normal 04-08-2019 [facility] (33365) Comment: Performed By: #### UMAC #### Testing performed at [address] [address] rapid tox screen,urine on 2019-04-08 AMPHETAMINE NEGATIVE NEGATIVE Normal 04-08-2019 [facility] (30359) Comment: Result Comment: <500 ng/ml C UTOFF Performed By: #### RTOX #### Testing performed at [address] [place] [address] BARBITURATES NEGATIVE NEGATIVE Normal 04-08-2019 [facility] (94933) Comment: Result Comment: <200 ng/ml C UTOFF Performed By: #### RTOX #### Testing performed at [address] [address] Benzodiazepines Ql (U) NEGATIVE NEGATIVE Normal 019 [facility] (72946) Comment: Result Comment: <150 ng/ml C UTOFF Performed By: #### RTOX #### Testing performed at [address] [address] BUPRENORPHINE NEGATIVE NEGATIVE Normal 04-08-2019 [facility] (25639) Comment: Result Comment: <10 ng/ml CU TOFF Performed By: #### RTOX #### Testing performed at [address] [address] Cannabinoids Screen Ql (U) NEGATIVE NEGATIVE Normal [facility] ( 41333) Comment: Result Comment: <50 ng/ml CU TOFF Performed By: #### RTOX #### Testing performed at [address] [place] [address] Cocaine Ql (U) NEGATIVE NEGATIVE Normal 04-08-2019 [facility] (74735) Comment: Result Comment: <150 ng/ml C UTOFF Performed By: #### RTOX #### Testing performed at [address] [place] [address] Methadone Ql (U) NEGATIVE NEGATIVE Normal 04-08-2019 [facility] (53353) Comment: Result Comment: <200 ng/ml C UTOFF Performed By: #### RTOX #### Testing performed at [address]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 [facility] (58087) Comment: Performed By: #### MN, ALC # ### [address] [place] [address] Urea nitrogen mass conc 14.0 7-18 mg/dL Normal 2018 [facility] (66834) Comment: Performed By: #### MN, ALC # ### [address] [place] [address] barbiturates, ur qnt on 2019-03-13 Amobarbital, Ur Qnt <50 Normal 03-13-2019 [facility] (31327) Comment: Performed By: #### [id number] ### #[facility] Reference [id number] [place] [address] Butalbital, Ur Qnt <50 Normal 03-13-2019 [facility] (34504) Comment: Result Comment: INTERPRETIVE INFORMATION: Barbiturates, Urine, Quantitative Methodology: Quantitative Ga s Chromatography-Mass Spectrometry. Positive cutoff: 50 ng/mL For medical purposes only; n ot valid for forensic use. The absence of expected drug (s) and/or drug metabolite(s) may indicate non-compliance, inappropriat e timing of specimen collection relative to drug administration, poor drug ab sorption, diluted/adulterated urine, or limitations of testing. The concentration value must be greater than or equal to the cutoff to be reported as positive. Interpretive questions should be directed to the laboratory. Test developed and character istics determined by [employer]. See Compliance Statement B: [employer]/ Performed By: #### [id number] ### #[employer] Reference [id number] [place] [address] Pentobarbital, Ur Qnt <50 Normal 03-13-20 [facility] (71274) Comment: Performed By: #### [id number] ### #[facility] Reference [id number] [place] [address] Phenobarbital, Ur Qnt >5000 Normal 03-13-20 [facility] (79023) Comment: Performed By: #### [id number] ### #[facility] Reference [id number] [place] [address] Phenobarbital, Ur Qnt 3448 ng/mL Normal 03-13-20 [facility] (44816) Comment: Performed By: #### [id number] ### #[employer] Reference [id number] [place] [address] Secobarbital, Ur Qnt <50 Normal [facility] (12209) Comment: Result Comment: Performed by [employer], [address] [place], [place] [address] www.[email or web address], Heath Isaac do, MD - Lab. Director Performed By: #### [id number] ### #[facility] Reference [id number] [place] [address] rapid plasma reagin on 2019-03-13 RAPID PLASMA REAGIN NONREACTIVE NONREACTIVE Normal 2018 [facility] ( 68141) Comment: Performed By: #### RPR #### [facility] [address] [place] [address] drug conf, cocaine, urine on 2019-03-12 Drug Conf, Cocaine, Urine >1000 Normal 02-23 [facility] (44807) Comment: Result Comment: INTERPRETIVE INFORMATION: Cocaine Metabolite, Urine, Quantitative Methodology: Quantitative Ga s Chromatography-Mass Spectrometry. Positive cutoff: 50 ng/mL For medical purposes only; n ot valid for forensic use. The concentration value must be greater than or equal to the cutoff to be reported as positive. Interp retive questions should be directed to the laboratory. Test developed and character istics determined by [employer]. See Compliance Statement B: [employer]/CS Performed by [employer] , [address] [place], [place] [address] www.[employer], Heath Isaac do, MD - Lab. Director Performed By: #### [id number] ### #[facility] Reference [id number] [place] [address] alcohol, medical on 2018-09-30 Ethanol mass conc Negative mg/dL Normal 09-30-2018 [facility] ([id number]) Comment: Performed By: #### ALC #### Unless otherwise noted, all testing performed by [facility] [address] [place], [place] [address] CLIA: [id number] Audio Video Repairer: Zak whiting M.D. xr femur right (min 2 views) on 2019-03-09 XR FEMUR RIGHT Patient Normal [place] (MIN 2 VIEWS) : 1980 [facility] ([id number]) Age: 38 years Gender: Male Order Date: 03/08/2019 10:00 PM EXAM: XR FEMUR RIGHT (MIN 2 VIEWS) COMPARISON: None INDICATION: Pain Pain VIEWS: 2 FINDINGS: No acute fracture or dislocation. No radiopaque foreign body identified. No significant soft tissue swelling. IMPRESSION: No fracture or dislocation. Interpreted by: Johnathan Caba DO Signed by: Johnathan Caba DO 03/08/[address] head without contrast on 2018-08-23 CT HEAD WITHOUT EXAM: CT HEAD WITHOUT CONTRAST, 08/22/2018 10:01 PM Normal 08-23-2018 [facility] CONTRAST COMPARISON: None. [facility] CLINICAL INDICATIONS: 38 years Male altered mental status. [facility] ([id number]) TECHNIQUE: A series of transaxial comput erized tomographic images are obtained from base of skull to vertex without intravenous contrast. Axial whole-head and thin section posterior fossa slices are provided. Reformats: Sagittal and coronal. This patient underwent a CT examination using radiation expo sure as low as reasonably achievable. CTDIvol and DLP radiation exposure va lues for each series were: Exposure: 1; Series: 2; Anatomy: Head; Phantom: 16 cm; CTDIv ol: 49; DLP: [address] are the volume Comput ed Tomography (CT) Dose Index (CTDIvol) and the Dose Length Product (DLP), and are measured in units of mGy and mGy-cm, respectively. These indicators are not patient dose, but values generated from the CT scanner acquisition factors and may portillo bstantially underestimate or overestimate the absorbed dose based on pat ient size and other factors. FINDINGS: The ventricles are midline and normal in configuration . No intracranial mass or hemorrhage is identified. Attenuation of the brain pare nchyma is normal, and the jones-white interface appears diffusely preserved. Po sterior fossa structures are unremarkable. Calvarium and skull base appear intact. Possible remote right-sided traumatic arch fracture, partially visualized. Paranasal sinuses and mastoid air cells are generally clear. Soft tissue opacity in the external a uditory canals is likely cerumen. Visualized orbits are unremarkable. IMPRESSION: No acute intracranial findings. 10 :[address] abdomen pelvis w iv contrast on 2019-03-07 CT ABDOMEN PELVIS Patient Normal 03-07-2019 [facility] IV CONTRAST : 1980 [facility] Age: 38 years ([id number] ) Gender: Male Order Date: 03/06/2019 9:15 PM Exam: CT ABDOMEN PELVIS W IV CONTRAST Number of Images: views Indication: upper abdominal pain, fall COMPARISON: None. TECHNIQUE: Standard-protocol CT scanning performed throughou t entire abdomen and pelvis. IV CONTRAST: 110 cc Isovue 370. ORAL CONTRAST: None. Exam sensitivity decreased in some resp ects by absence of GI tract contrast. FINDINGS: Lung bases: No pleural effusion or pulmonary consolidation. Abdominal aorta: Normal in diameter. Liver: No mass or other significant pathology seen. Biliary system: No intrahepatic or extrahepatic biliary duct al dilatation seen. Pancreas: No abnormal mass or fluid collection seen. Spleen: No significant abnormality seen. Adrenal glands: No nodule or mass seen on either side. Kidneys: No mass, calculus, or hydronephrosis seen on either side. Urinary bladder: Apparent concentric wall thickening. GI tract/peritoneal cavity: No significantly dilated small b owel loops. Multiple fluid-filled small bowel loops without obvio us defined transition point. Prominent bilateral colonic stool. No pneumoperitoneum seen. No significant free fluid seen. Lymph nodes: No CT-significant adenopathy seen. Osseous structures: No overtly suspicious lytic or sclerotic bone lesions seen. Some lower lumbar spondylosis changes. IMPRESSION: Correlate and follow-up clinically for significant-appearing colonic constipation or fecal stasis. Additional nonspecific but nonobstructive appearing small consuelo wel findings, possibly related to above, possibly reflecting oth er enteritis or viral syndrome. Correlate clinically. Correlate clinically for possible cystitis or chronic urinar y bladder outlet obstruction. No other obvious acute intra-abdominal pathology evident. Interpreted by: Gunjan Clancy MD Signed by: Gunjan Clancy MD 03/06/[address] head wo contrast on 2019-03-07 CT HEAD WO Patient Normal 019 [facility] CONTRAST : 1980 [facility] Age: 38 years ([id number] ) Gender: Male Order Date: 03/06/2019 9:15 PM Exam: CT HEAD WO CONTRAST Number of Images: views Indication: seizure COMPARISON: None. TECHNIQUE: Standard-protocol CT scanning from skull base to vertex. IV CONTRAST: None. Exam sensitivity decreased in some respec ts by absence of IV contrast. FINDINGS: No acute intracranial infarct, hemorrhage, obvious mass, mid line shift, or extra-axial fluid collection evident. Ventricular system symmetric and unremarkable. No acute calvarial fracture evident. No more substantial inflammatory disease evident at partiall y and incidentally visible portions of paranasal sinus chambers. IMPRESSION: NO ACUTE INTRACRANIAL ABNORMALITY EVIDENT. Interpreted by: Gunjan Clancy MD Signed by: Gunjan Clancy MD 03/06/19 Final result ur drugs of abuse panel on 2019-03-07 Protein mass conc NOT DETECTED Negative <300 Normal 03-07 [facility] ng/mL [facility] ([id number]) UR Amphetamines NOT DETECTED Negative <1000 Normal 2018 [facility] Screen ng/mL [facility] (52365) UR Barbiturates POSITIVE Negative < 200 Abnormal 9 [facility] Screen ng/mL [facility] (45771) UR Benzo Screen NOT DETECTED Negative < 200 Normal 2018 [facility] ng/mL [facility] (23362) UR Cannabinoids NOT DETECTED Negative < Normal 03-07-2019 [facility] Screen 50ng/mL [facility] (48963) UR Cocaine Screen POSITIVE Negative < 300 Abnormal 019 [facility] ng/mL [facility] (34087) UR Methadone Screen NOT DETECTED Negative <300 Normal [facility] ng/mL [facility] (22538) UR Opiates Screen POSITIVE Negative < Abnormal 03-07-2019 [facility] 300ng/mL [facility] (11415) Comment: Result Comment: Note: The Op iate Screen is not intended to detect Oxycodone. If this is a drug of interes t in this patient, a urine Oxycodone assay should be or dered. UR PCP Screen NOT DETECTED Negative < 25 ng/mL Normal [facility] (45622) Comment: Result Comment: A urine drug screen assay provides only a preliminary analytical test result. A mo re specific alternative chemical method must be used to obtai n a confirmed analytical result (eg., gas chromatography or thin layer chromatography). Clinical consideration and p rofessional judgment should be applied to any drug of abuse test result, particularly when preliminary positive results are used. Unconfirmed screening result s should be used for medical purposes only and not for an y legal or employment purpose. urinalysis, reflex to microscopic on 2019-03-07 Bilirubin Ql (U) Negative Negative Normal 03-07-2019 [facility] ter (57824) Clarity Nom (U) Clear Clear Normal 03-07-2019 [facility] (26681) Color Nom (U) Yellow Straw/Yellow Normal 03-07-2019 [facility] ter (81831) Glucose Ql (U) Negative Negative Normal 03-07-2019 [facility] (26646) Hemoglobin Ql (U) Negative Negative Normal 03-07-2019 [facility] (26368) Ketones Ql (U) Negative Negative Normal 03-07-2019 [facility] (54731) Leukocyte esterase Negative Negative Normal 03-07-2019 [place] Test strip Ql (U) [facility] (96845) Nitrite Ql (U) Negative Negative Normal 03-07-2019 [facility] (24716) pH (U) 6.0 5.0-9.0 [pH] Normal 03-07-2019 [facility] (52993) Protein Ql (U) Negative Negative Normal 03-07-2019 [facility] (56095) Specific gravity 1.010 1.005-1.030 Normal 03-07-2019 [place] Relative Density (U) [facility] (85489) Urobilinogen Qn (U) 0.2 < 2.0 E.U./dL Normal 03-07-2019 [facility] (07488) ct cervical spine wo contrast on 2019-03-07 CT CERVICAL SPINE Patient Normal 03-07-2019 [place] WO CONTRAST : 1980 [facility] Age: 38 years ([id number] ) Gender: Male Order Date: 03/06/2019 9:15 PM Exam: CT CERVICAL SPINE WO CONTRAST Number of Images: views Indication: Fall, neck pain. COMPARISON: None. TECHNIQUE: Standard-protocol axial noncontrast CT scanning t hrough cervical spine region. Multiplanar reconstruction images gen erated also. IV CONTRAST: None. FINDINGS: Cervical vertebral body heights intact. Odontoid process intact. No acute osseous cervical vertebral fracture seen. Overall cervical spine straightening or hypolordosis present . No suspected significant cervical vertebral subluxation or spondylolisthesis. Cervical intervertebral disc space heights intact. IMPRESSION: No acute osseous cervical vertebral fracture evident. Correlate clinically for possible cervical muscle spasm or s oft tissue injury. Interpreted by: Gunjan Clancy MD Signed by: Gunjan Clancy MD 03/06/19 Final result ur drugs of abuse panel on 2019-03-09 Protein mass conc NOT DETECTED Negative <300 Normal 03-09 [facility] ng/mL [facility] (32855) UR Amphetamines NOT DETECTED Negative <1000 Normal 2018 [facility] Screen ng/mL [facility] (99644) UR Barbiturates POSITIVE Negative < 200 Abnormal 9 [facility] Screen ng/mL [facility] (90015) UR Benzo Screen NOT DETECTED Negative < 200 Normal 2018 [facility] ng/mL [facility] (44800) UR Cannabinoids NOT DETECTED Negative < Normal 03-09-2019 [facility] Screen 50ng/mL [facility] (90069) UR Cocaine Screen NOT DETECTED Negative < 300 Normal -11 29-2018 [facility] ng/mL [facility] (29849) UR Methadone Screen NOT DETECTED Negative <300 Normal [facility] ng/mL [facility] (04151) UR Opiates Screen NOT DETECTED Negative < Normal 03-09-20 19 [facility] 300ng/mL [facility] (07937) Comment: Result Comment: Note: The Op iate Screen is not intended to detect Oxycodone. If this is a drug of interes t in this patient, a urine Oxycodone assay should be or dered. UR PCP Screen NOT DETECTED Negative < 25 ng/mL Normal [facility] (06983) Comment: Result Comment: A urine drug screen assay provides only a preliminary analytical test result. A mo re specific alternative chemical method must be used to obtai n a confirmed analytical result (eg., gas chromatography or thin layer chromatography). Clinical consideration and p rofessional judgment should be applied to any drug of abuse test result, particularly when preliminary positive results are used. Unconfirmed screening result s should be used for medical purposes only and not for an y legal or employment purpose. ct lumbar spine wo contrast on 2019-03-09 CT LUMBAR SPINE Patient Normal [facility] CONTRAST : 1980 [facility] Age: 38 years ([id number] ) Gender: Male Order Date: 03/08/2019 10:00 PM TECHNIQUE/NUMBER OF IMAGES/COMPARISON/CLINICAL HISTORY: CT scan of the lumbar spine Sequential axial images were obtained with sagittal and leo nal reconstructions. 849 images History trauma injury fall. FINDINGS: There is discrete retroposition of L5 relation to S1. There is a discrete posterior central disc displacement in L5-S1 w hich effaces the epidural fat, in close proximity with the proxim al segments of the roots exiting in the S1-S2 level and anterio r aspect of the thecal sac but there is no spine canal stenosis. In the other levels there is no spine canal stenosis. There are no encroachments of the neural foramina on the lum bar spine bilaterally. No acute fractures are seen in the lumbar spine. Pedicles sp inous process and transverse processes are intact. The facet joint s are well aligned. No acute fractures are seen in the sacral spines. SI joints have symmetric appearance. The IMPRESSION: 1. No acute fractures in the lumbar sacral spine. 2. Discrete central posterior disc displacement in L5-S1. 3. Discrete posterior misalignment of L5 posteriorly relatio n to S1 of undetermined age. No fractures are seen at this level. Facet joints are well aligned. Pedicles are intact. Interpreted by: Kain Carey MD Signed by: Kain Carey MD 03/08/[address] thoracic spine wo contrast on 2019-03-09 CT THORACIC Patient Normal 2018 [place] SPINE WO : 1980 [facility] CONTRAST Age: 38 years ([id number] ) Gender: Male Order Date: 03/08/2019 10:00 PM TECHNIQUE/NUMBER OF IMAGES/COMPARISON/CLINICAL HISTORY: CT scan of the thoracic spine Axial images were obtained sagittal and coronal reconstructi ons. 1017 images are. Clinical history fall trauma injury. No prior studies available for comparison. FINDINGS: The vertebral bodies have normal height. Disc spac es are well-maintained. The facet joints are well aligned. Spinous process are intact. Pedicles are intact. Costovertebral junctions are intact. Transverse process are intact. There is no bone or soft tissue encroachment of the thoracic spine canal or neural foramina. IMPRESSION: No acute fractures or dislocation of the thoracic spine. Interpreted by: Kain Carey MD Signed by: Kain Carey MD 03/08/19 Final result urinalysis, reflex to microscopic on 2019-03-09 Bilirubin Ql (U) Negative Negative Normal 03-09-2019 [facility] (01558) Clarity Nom (U) Clear Clear Normal 03-09-2019 [facility] (37117) Color Nom (U) Yellow Straw/Yellow Normal 03-09-2019 [facility] (84545) Glucose Ql (U) Negative Negative Normal 03-09-2019 [facility] (11979) Hemoglobin Ql (U) Negative Negative Normal 03-09-2019 [facility] (75996) Ketones Ql (U) Negative Negative Normal 03-09-2019 [facility] (86649) Leukocyte esterase Negative Negative Normal 03-09-2019 [place] Test strip Ql (U) [facility] (44255) Nitrite Ql (U) Negative Negative Normal 03-09-2019 [facility] (08523) pH (U) 7.0 5.0-9.0 [pH] Normal 03-09-2019 [facility] (65165) Protein Ql (U) Negative Negative Normal 03-09-2019 [facility] (21222) Specific gravity 1.015 1.005-1.030 Normal 03-09-2019 [place] Relative Density (U) [facility] (17123) Urobilinogen Qn (U) 0.2 < 2.0 E.U./dL Normal 03-09-2019 [facility] (13861) *poc glucose battery on 2018-08-22 *POC SAMPLE TYPE Capillary Blood Normal 08-22-[address] [facility] (39468) Glucose mass conc 98 70-99 mg/dL Normal 08-22-2018 O [facility] (21248) Comment: Result Comment: Notified RNr ead back No BRAVE per RN: PATIENT TYP E cbc with platelet and differential on 2019-03-06 Abs Imm Granulocytes 0.03 E9/L Normal 9 [facility] (30048) Basophils #/vol (Bld) 0.01 0.00-0.20 E9/L Normal 03-06-20 19 [facility] (18388) Basophils/100 WBC (Bld) 0.1 0.0-2.0 % Normal 2018 [facility] (48777) Eosinophils #/vol (Bld) 0.05 0.05-0.50 E9/L Normal 2018 [facility] (12263) Eosinophils/100 WBC (Bld) 0.6 0.0-6.0 % Normal 02-23 [facility] (59706) Erythrocyte distribution 12.6 11.5-15.0 fL Normal 03-06 [place] width Ratio (RBC) [facility] (80900) Hematocrit Volume 37.3 37.0-54.0 % Normal 03-06-2019 S [facility]int [place] Fraction (Bld) [facility] (28540) Hemoglobin mass conc 13.0 12.5-16.5 g/dL Normal 9 [place] (Bld) [facility] (49853) Imm Granulocytes 0.3 0.0-5.0 % Normal 03-06-2019 [facility] (03124) Lymphocytes #/vol (Bld) 2.08 1.50-4.00 E9/L Normal 2018 [facility] [address] (16666) Lymphocytes/100 WBC (Bld) 24.2 20.0-42.0 % Normal 02-23 [facility] (85870) MCH Entitic mass (RBC) 30.9 26.0-35.0 pg Normal 019 [facility] (47512) MCHC mass conc (RBC) 34.9 32.0-34.5 % High 9 [facility] ter (03036) MCV Entitic volume (RBC) 88.6 80.0-99.9 fL Normal 03-06 [facility] (95156) Monocytes #/vol (Bld) 0.46 0.10-0.95 E9/L Normal 03-06-20 19 [facility] (38055) Monocytes/100 WBC (Bld) 5.4 2.0-12.0 % Normal 2018 [facility] ter (88314) Neutrophils #/vol (Bld) 5.96 1.80-7.30 E9/L Normal 2018 [facility] (45527) Neutrophils/100 WBC (Bld) 69.4 43.0-80.0 % Normal 02-23 [facility] (84424) Platelet mean volume 9.6 7.0-12.0 fL Normal 9 [place] Entitic volume (Bld) [facility] (79453) Platelets #/vol (Bld) 162 130-450 E9/L Normal 03-06-20 19 [facility] (66158) RBC #/vol (Bld) 4.21 3.80-5.80 E12/L Normal 03-06-2019 [facility] [address] (19369) WBC #/vol (Bld) 8.6 4.5-11.5 E9/L Normal 03-06-2019 [facility] (74064) comprehensive metabolic panel on 2019-03-06 Albumin mass conc 4.2 3.5-5.2 g/dL Normal 03-06-[address] [facility] [address] (83330) ALP enzyme act/vol 42 40-129 U/L Normal 03-06-2019 [facility] (15244) ALT enzyme act/vol 40 0-40 U/L Normal 03-06-2019 [facility] [address] (16660) Anion gap molar conc 7 7-16 mmol/L Normal 9 [facility] (88505) AST enzyme act/vol 37 0-39 U/L Normal 03-06-2019 [facility] [address] (31871) Bilirubin mass conc 0.3 0.0-1.2 mg/dL Normal 03-06-2019 [facility] (38934) Calcium mass conc 8.9 8.6-10.2 mg/dL Normal 03-06-2019 [facility] [address] (69077) Chloride molar conc 106 98-107 mmol/L Normal 03-06-2019 [facility] (80911) CO2 molar conc 24 22-29 mmol/L Normal 03-06-2019 [facility] (63476) Creatinine mass conc 1.0 0.7-1.2 mg/dL Normal 9 [facility] ter (18005) GFR/1.73 sq M >60 mL/min/{1.73_m Normal 03-06-2019 [place] predicted among 2} [facility] blacks MDRD vol (000 00) rate/area (S/P/Bld) GFR/1.73 sq M >60 >=60 mL/min/{1.73_m Normal 03-06-2019 [place] predicted among 2} [facility] non-blacks MDRD vol (12033) rate/area (S/P/Bld) Comment: Result Comment: Chronic Kidn ey Disease: less than 60 ml/min/1.73 sq.m. Kidney Failure: less than 15 ml/min/1.73 sq.m. Results valid for patients 1 8 years and older. Glucose mass conc 128 74-99 mg/dL High 03-06-2019 [facility] (00 000) Potassium molar conc 3.7 3.5-5.0 mmol/L Normal 9 [facility] (00 000) Protein mass conc 7.0 6.4-8.3 g/dL Normal 03-06-2019 [facility] (00 000) Sodium molar conc 137 132-146 mmol/L Normal 03-06-2019 [facility] (00 000) Urea nitrogen mass conc 22 6-20 mg/dL High 2018 [facility] (00 000) creatine kinase on 2019-03-07 CK enzyme act/vol 1290 20-200 U/L High 03-07-2019 [facility] (12914) CK enzyme act/vol 1166 20-200 U/L High 03-07-2019 [facility] (15751) troponin on 2019-02 Troponin I.cardiac mass <0.01 0.00-0.03 ng/mL Normal 2018 [facility] (00 000) Comment: Result Comment: TROPONIN T B LOOD LEVELS: 0.03 ng/mL Upper Reference L imit 0.04 - 0.09 ng/mL Possible m yocardial injury >= 0.10 ng/mL Myocardial inj ury serum drug screen o n 2019-03-06 Acetaminophen mass conc <5.0 10.0-30.0 Low 2018 [facility] (00 000) Ethanol mass conc <10 mg/dL Normal 03-06-2019 [facility] (00 000) Comment: Result Comment: Not Detected Salicylate <0.3 0.0-30.0 Normal 03-06-2019 [facility] (46604) TCA Screen NEGATIVE Cutoff:300 Normal 03-06-2019 [facility] (50876) urinalysis,micro on 2018-08-10 ----- Normal 08-10-2018 [facility] (34714) Comment: Performed By: #### SIDNEY ENGLISH UMICAO #### [facility] [address] [place] [address] Epithelial cells LM.HPF 0 TO 2 Normal 2017 [facility] #/area (Urine sed) ( 71422) Comment: Performed By: #### UA, SIDNEY UMICAO #### [facility] [address] [place] [address] RBC #/vol (U) 2 TO 5 0-2 Normal 08-10-2018 [facility] (32598) Comment: Performed By: #### UA, SIDNEY, UMICAO #### [facility] [address] [place] [address] Amorphous sediment LM Ql NOT REPORTED NONE Normal [facility] (Urine sed) (32255) Comment: Performed By: #### UA, SIDNEY, UMICAO #### [facility] [address] [place] [address] Bacteria LM.HPF #/area NOT REPORTED NONE Normal 07-26 [facility] (Urine sed) (31453) Comment: Performed By: #### UA, SIDNEY, UMICAO #### [facility] [address] [place] [phone] Casts LM.LPF #/area NOT REPORTED Normal 018 [facility] (Urine sed) (74446) Comment: Performed By: #### UA, SIDNEY, UMICAO #### [facility] [address] [place] [address] Crystals LM Nom (Urine NOT REPORTED NONE Normal 07-26 [facility] sed) (66582) Comment: Performed By: #### UA, SIDNEY, UMICAO #### [address] [place] [address] Epithelial, Renal NOT REPORTED 0 Normal 8 [facility] (86036) Comment: Performed By: #### UA, SIDNEY, UMICAO #### [facility] [address] [place] [address] Mucus Strands NOT REPORTED NONE Normal 08-10-2018 [facility] (19920) Comment: Performed By: #### UA, SIDNEY, UMICAO #### [facility] [address] [place] [address] Other Observations NOT REPORTED NREQ Normal 08-10-20 18 [facility] (73117) Comment: Performed By: #### UA, SIDNEY, UMICAO #### [facility] [address] [place], [place] [id number] Trichomonas NOT REPORTED NONE Normal 08-10-2018 [facility] (04987) Comment: Performed By: #### UA, SIDNEY, UMICAO #### [facility] [address] [place] [address] WBC #/vol (U) NOT REPORTED 0 Normal 08-10-2018 [facility] (74994) Comment: Performed By: #### UA, SIDNEY, UMICAO #### [facility] [address] [place] [address] Yeast LM Ql (Urine sed) NOT REPORTED NONE Normal [facility] (27680) Comment: Performed By: #### UA, SIDNEY, UMICAO #### [facility] [address] [place] [address] diff method on 2018 Diff Method AUTO Normal 01-27-2019 [facility] (65205) Comment: Performed By: #### CP, CDP, LIP, DIFE, LACTIC #### [facility] [address] [place] [address] City Bailiff: Shankar Hodges MD lipase on 5 Lipase enzyme act/vol 36 13-60 U/L Normal 01-28-20 19 [facility] (89220) Comment: Performed By: #### CDP, CP # ### [facility] [address] [place] [address] lactic acid on 2018 Lactate molar conc 0.9 0.5-2.2 mmol/L Normal 01-27-2019 [facility] (02770) Comment: Performed By: #### CP, CDP, LIP, DIFE, LACTIC #### [facility] [address] [place] [phone] City Bailiff: Shankar Hodges MD Lactate molar conc NOT REPORTED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 02-10-2019 Telephone encounter Roel Giron [facility] Comment: Other 10-07-2018 - 10-07-2018 Telephone encounter Renita [facility] Medicine Comment: Medication Management Procedures Procedure Name Date Provider Location Esophagogastroduodenoscopy transoral 04-08-2019 Brian arriaga [facility] (05094) TOXICOLOGY DRUG SCREEN, URINE 04-08-2019 [facility] Reynaldo [facility] (15872) URINALYSIS, MACRO 04-08-2019 [facility] Reynaldo [facility] (40479) Computed tomography of abdomen and 04-08-2019 Add[place] [facility] pelvis with contrast (24988) Assay of lactate 04-08-2019 [facility] Reynaldo [facility] (69919) CBC, EDIF, PLATELET 04-08-2019 [facility] Reynaldo [facility] TH (72256) Comprehensive metabolic panel 04-08-2019 [facility] Reynaldo [facility] (75701) Diagnostic radiography of abdomen 04-08-2019 Sammy Bautista [facility] (05201) Drug screen class list a 03-09-2019 [facility] (40748) Urnls dip stick/tablet rgnt auto w/o 03-09-2019 [facility] (86115) Ct lumbar spine w/o contrast 03-09-2019 [facility] (82348) Ct thoracic spine w/o contrast 03-09-2019 [facility] (66670) Radiologic examination femur minimum 03-09-2019 [place] 2 views [facility] (22821) Creatine kinase total 03-07-2019 [facility] (73649) Ct abdomen & pelvis w/contrast 03-07-2019 [facility] (40610) Ct cervical spine w/o contrast 03-07-2019 [facility] [facility]87[facility] Ct head/brain w/o contrast material 03-07-2019 [facility] (07092) Radex spine thoracic 3 views 03-06-2019 [facility] (38423) Assay of troponin quantitative 03-06-2019 [facility] (63910) Blood count complete auto&auto 03-06-2019 [facility] (26473[facility] Comprehensive metabolic panel 03-06-2019 [facility] (93865) Creatine kinase total 03-06-2019 [facility] (82210) Drug screen, qualitate/multi 03-06-2019 [facility] (99436) Drug screen class list a 03-06-2019 [facility] (12026) Urnls dip stick/tablet rgnt auto w/o 03-06-2019 [facility] (24311) Ecg routine ecg w/least 12 lds w/i&r 03-06-2019 [facility] (87194) IP CONSULT TO SOCIAL WORK 03-06-2019 [facility] (24688) 12 lead ECG 02-14-2019 Javy Villeda [facility] (4321 5) Basic metabolic 1998 panel - Serum 02-14-2019 Javy Parker s [facility] (23021) or Plasma Complete blood count with white cell 02-14-2019 Javy olsen [facility] (10011) differential, automated Complete blood count with white cell 02-14-2019 Javy olsen [facility] (13612) differential, manual Ethanol [Mass/volume] in Serum or 02-14-2019 Javy Rings [facility] (49621) Plasma Hepatic function 2000 panel - Serum 02-14-2019 Javy Lezama [facility] (22430) or Plasma Acute hepatitis panel 01-27-2019 [facility] (34109) Assay of lactate 01-27-2019 [facility] (92238) Assay of lipase 01-27-2019 [facility] (80989) Blood count complete auto&auto 01-27-2019 [facility] (80030) Comprehensive metabolic panel 01-27-2019 [facility] (05824) SALINE LOCK IV 01-27-2019 [facility] (69895) Urnls dip stick/tablet reagent auto 01-27-2019 [facility] (45690) Drug screen, single 10-14-2018 - [facility] 10-14-2018 [facility] (84594) LABS (SCANNED) 10-14-2018 - Roel Kwaku [facility] 10-14-2018 [facility] (23411) Comprehensive metabolic panel 08-10-2018 [facility] (29831) RESPIRATORY ORDER/INSTRUCTION 08-10-2018 [facility] (40730) Microscopic urinalysis 08-10-2018 [facility] (76622) URINE DRUG SCREEN 08-10-2018 [facility] (06877) Urnls dip stick/tablet rgnt auto w/o 08-10-2018 [facility] (14702) Blood count complete auto&auto 08-10-2018 [facility] (18136) Comprehensive metabolic panel 08-10-2018 [facility] (80848) EKG 12-LEAD 08-10-2018 [facility] (48117) Radiologic exam chest single view 03-30-2018 [facility] (33236) Plan of Treatment Plan Description Date Location INFLUENZA VACCINE INFLUENZA VACCINE 07-26-2019 [facility] (53318) (Season Ended) (Season Ended) Office Visit 10/21/2018 Office Visit 10-21-2018 - [facility] 10-21-2018 Medicine Roel Giron MD [address] [place] [address] [phone] [facility] 10-14-[address] [facility] SENDOUT SENDOUT Routine 10-14-2019 [facility] Encounter for long-term [facility] opiate analgesic use (19390) Expected: 10/14/2018, Expires: 10/14/2019 Comment: Expected: 10/14/2018, s: 10/14/2019 Office Visit 10/14/2018 Office Visit 10-14-2018 - [facility] 10-14-2018 Medicine Roel Giron MD [address] [place] [address] [phone] INFLUENZA VACCINE INFLUENZA VACCINE (#1) [address] [facility] (#1) 07-26-2018 [facility] (63331) SEQUENTIAL INFLUENZA SEQUENTIAL INFLUENZA 07-26-2018 [facility] (69450) VACCINE (#1) VACCINE (#1) Office Visit 07/30/2017 Office Visit 07-30-2017 [facility] Primary Primary Care Marlyn Mast MD [address] [place], [place] [address] [phone] SEQUENTIAL INFLUENZA SEQUENTIAL INFLUENZA 07-26-2017 [facility] (02792) VACCINE (#1) VACCINE (#1) Office Visit no information 07-03-2017 [facility] TDAP (ADULT) TDAP (ADULT) 1999 - [facility] 1999 [facility] (62935) TETANUS TETANUS 1998 - [facility] 1998 [facility] (12383) HIV SCREENING HIV SCREENING 1993 - [facility] DISCUSSION DISCUSSION 1993 [facility] (18498) TETANUS EVERY 10 YR TETANUS EVERY 10 YR 1980 [facility] (04458) TETANUS EVERY 10 YR TETANUS EVERY 10 YR 1980 [facility] (26852) XR ACUTE ABDOMINAL XR ACUTE ABDOMINAL [facility] (91021) SERIES SERIES Imaging STAT 04/08/2019 9:31 AM EDT EEG Sleep deprived EEG Sleep deprived 06-26-2018 [facility] (78043) Routine Seizures (HCC) 1 Occurrences starting 06/26/2017 until 06/26/2018 MR Brain Without MR Brain Without 06-26-2018 [facility] (43 215) Contrast Contrast Routine Seizures (HCC) 1 Occurrences starting 06/26/2017 until 06/26/2018 The following information is from the original human readable content Upcoming Encounters Date Type Specialty Care Team Description 07/03/2017 Office Visit Sports Medicine Christoph Arcos MD [address] [facility] [address] [place] [address] 07/03/2017 Hospital Encounter Christoph Arcos MD [address] [facility] [address] [place] [address] 07/30/2017 Office Visit Primary Care Denilson Mast MD [address] [place], [place] [address] [phone] Scheduled Tests Name Priority Associated Diagnoses Order Sched ule EEG Sleep deprived Routine Seizures (HCC) 1 Occurrences starting 06/26/2017 until 06/26/2018 MR Brain Without Contrast Routine Seizures (HCC) 1 Occu rrences starting 06/26/2017 until 06/26/2018 Scheduled Referrals Name Priority Associated Diagnoses Order Sched ule Ambulatory referral to Routine Chronic hepatitis C with 1 Occurrences starting Infectious Disease hepatic coma (HCC) 06/26/2017 until 06/26/2018 Ambulatory referral to Routine Seizures (HCC) 1 Occurre nces starting Neurology 06/26/2017 until 06/26/2018 Health Maintenance Due Date Last Done Comments TETANUS EVERY 10 YR 1980 SEQUENTIAL INFLUENZA VACCINE (#1) 2017 Upcoming Encounters Date Type Specialty Care Team Description 10/21/2018 Office Visit Family Medicine Wu Giron MD [address] [place] [address] Scheduled Tests Name Priority Associated Diagnoses Order Sched ule RE[facility] FOR [facility] Routine Encounter for long-term Expected: 10/14/2018, SENDOUT opiate analgesic use Expires: Health Maintenance Due Date Last Done Comments HIV SCREENING DISCUSSION 1993 TETANUS 1998 TDAP (ADULT) 1999 INFLUENZA VACCINE (#1) 2018 Health Maintenance Due Date Last Done Comments HIV SCREENING DISCUSSION 1993 TETANUS 1998 TDAP (ADULT) 1999 INFLUENZA VACCINE (#1) 2018 Health Maintenance Due Date Last Done Comments HIV SCREENING DISCUSSION 1993 TETANUS 1998 TDAP (ADULT) 1999 INFLUENZA VACCINE (#1) 2018 Upcoming Encounters Date Type Specialty Care Team Description 10/14/2018 Office Visit Family Medicine Wu Giron MD [address] [place] [address] [phone] Health Maintenance Due Date Last Done Comments HIV SCREENING DISCUSSION 1993 TETANUS 1998 TDAP (ADULT) 1999 INFLUENZA VACCINE (#1) 2018 Health Maintenance Due Date Last Done Comments HIV SCREENING DISCUSSION 1993 TETANUS 1998 TDAP (ADULT) 1999 INFLUENZA VACCINE (#1) 2018 Health Maintenance Due Date Last Done Comments TETANUS EVERY 10 YR 1980 SEQUENTIAL INFLUENZA VACCINE (#1) 2018 Health Maintenance Due Date Last Done Comments HIV SCREENING DISCUSSION 1993 TETANUS 1998 TDAP (ADULT) 1999 INFLUENZA VACCINE (#1) 2018 Pending Results Name Type Priority Associated Diagnoses Date/Ti me XR ACUTE ABDOMINAL Imaging STAT 9 9:31 AM EDT SERIES Health Maintenance Due Date Last Done Comments HIV SCREENING DISCUSSION 1993 TETANUS 1998 TDAP (ADULT) 1999 INFLUENZA VACCINE (Season Ended) 2019 Health Maintenance Due Date Last Done Comments HIV SCREENING DISCUSSION 1993 TETANUS 1998 TDAP (ADULT) 1999 INFLUENZA VACCINE Completed 10/27/2018 Payers Payer Name Policy Number [facility] xxxxxxxxxxx Alex Erwin MEDICAID [employer] MANAGED MEDICAID, [id number] [facility] ([id number]) CARESOURCE MANAGED MEDICAID, CARESOURCE MANAGED MEDICAID, CARESOURCE MANAGED MEDICAID, CARESOURCE, CareSource, CareSource, CARESOURCE, CARESOURCE, CARESOURCE, CARESOURCE, CARESOURCE, CARESOURCE [facility] (12025) SELF PAY [facility] (72918) 7274501 [facility] (72708) 4142766 [facility] (77061) 8794412 [facility] (82988) 0256635 [facility] (11596) 3275596 [facility] (78232) 1305795 [facility] (73312) 28846063 [facility] (0000 0) 31713406 [facility] (14733) 02500336 [facility] (94842) [id number] [facility] (10883) [id number] [facility] (02672) 88755190 [facility] ( 51948) 1935 [facility] (000 00) The following information is from the original human readable content ENCOUNTER GUARANTOR PAYER SUBSCRIBER SOURCE 2019 ALEX Watkins Primary ALEX Watkins [facility] KENREESEDDOB: Insurance:CARESOURCE IVETTDDOB: Reposit or [id number] [facility]ID[facility] [id number] Number: KITTY HAWK [id number]: [phone]) [id number] [place], [place] [phone] (HP) Date:0122-64-91[address]Car: [phone]) [address], [place] [phone] () [phone]: Payer Benefit Plan / Group Subscriber ID Type Phone A ddress CARESOURCE MANAGED MEDICAID CARESOURCE MEDICAID [id number] Home: [address] [place], [place] [phone] [place], [place] [address] ENCOUNTER GUARANTOR PAYER SUBSCRIBER SOURCE 06/26/2017 ALEX Watkins Primary ALEX Watkins [facility] KENNARDDOB: Insurance:CARESOURCE KENNARDDOB: Reposit ory MANAGED MEDICAIDPolicy [id number] [facility], Number: [facility] [address]Hph: [id number] [place], [place] Date:1401-70-54PX [address] [address]Cif: [phone]) (HP) [address] [place], [place] [phone] (HP) [phone]: 06/26/2017 Secondary ALEX Watkins [facility] Insurance:CARESOURCE KENNARDDOB: Reposit ory MANAGED MEDICAIDPolicy [id number] Number: KITTY HAWK [id number] [place], [place] Date:3014-36-88UN [address] [address]Qif: (140) [address] [place], [place] [phone] (HP) [address]KQ: 06/19/2017 ALEX Watkins Primary ALEX Watkins [facility] ee KENNARDDOB: Insurance:CARESORAMBO ROOTDDOB: Reposit ory MANAGED MEDICAIDPolicy [id number] [facility], Number: [facility] [address]Bqi: [id number] [place], [place] Date:2121-55-68WD [address] [address]Sae: [phone]) (HP) [address] [place], [place] [phone] (HP) [address]CL: 06/19/2017 Secondary ALEX Watkins [facility] Insurance:CARESOURCE KENNARDDOB: Reposit ory MANAGED MEDICAIDPolicy [id number] Number: KITTY HAWK [id number] [place], [place] Date:4884-55-19DG [address] [address]Oox: (419) [address] [place] [address] [phone] () [address]SS: 05/29/2017 LAEX Watkins Primary ALEX Watkins [facility] KENNARDDOB: Insurance:CARESOURCStormy ROOTDDOB: Reposit ory MANAGED MEDICAIDPoly [id number] [facility], Number: [place], [place] [address]Mmu: [id number] [place] [address] Date:9185-37-66ME [address]OX () [address] [place] [address]DE: 05/29/2017 Secondary ALEX Watkins [facility] Insurance:CARESOURCE IVETTDDOB: Reposit ory MANAGED MEDICAIDPolregional health services of [place] [place] [id number] Number: [facility] [id number] [place] [address] Date:8677-82-66XJ [address] [place] [phone]: ENCOUNTER GUARANTOR PAYER SUBSCRIBER SOURCE 03/27/2018 ALEX Watkins Primary ALEX Watkins [facility] KENNARDDOB: Insurance:CARESOU KENREESEDDOB: [facility] R eposio[facility] center RCEPolicy Number: [id number] KITTY HAWK [id number] [place], [place] [address]Ynf: (232) Date:1959-11-25 [phone] () 7146-90-49WF [address] [place] [id number]: ENCOUNTER GUARANTOR PAYER SUBSCRIBER SOURCE 01/02/2019 Primary ALEX NEWTONREESEDDOB: [facility] Insurance:[facility] [id number] Franco kiser nd [facility] Policy Number: DUNAWAY STSKettering Health Preble [id number] Date:Plan Name:[facility] [address] [place] [address]FO: 09/30/2018 Primary ALEX NEWTONREESEDDOB: [facility] Insurance:CareSource [id number] [facility] Policy Number: EMELYN COLES [place] Liil banda [id number] Date:Plan Name:Health Jose [place], [place] [address]PH: 06/27/2018 Primary ALEX ROOTDDOB: [facility] Insurance:CareSource [id number] and [facility] Policy Number: KITTY HAWK Zhang COBBlakehealth tri[facility] [id number] [place] [address]Xbi: (227) Date:Plan (HP) Name:Health Jose David [address] [place] [address]JO: Payer Benefit Plan / Group Subscriber ID Effective Dates Phone Address Type CARESOURCE CARESOURCE xxxxxxxxxxx 2018-Present CARESOURCE CARESOURCE xxxxxxxxxxx 2018-Present Payer Benefit Plan / Subscriber ID Effective Dates Phone Addre ss Type Group CARESOURCE MANAGED CARESOURCE xxxxxxxxxxx 2016-Present MEDICAID MEDICAID ENCOUNTER GUARANTOR PAYER SUBSCRIBER SOURCE 10/08/2017 Primary ALEX Watkins [facility] Insurance:MARLYNSORAMBO BEGUMOB: Reposit ory MANAGED MEDICAIDPolicy [id number] Number: KITTY HAWK [id number] [place], [place] Date:2492-42-40OJ [address] [address]Dkb: [phone]) [address], [place] [phone] () [address]JW: 10/08/2017 Secondary ALEX Watkins [facility] Insurance:MARLYNSOURCStormy BEGUMOB: Reposit ory MANAGED MEDICAIDPolicy [id number] Number: KITTY HAWK [id number] Á[place], [place] Date:6635-50-16ML [address] [address]Pma: [phone]) [address] [place], [place] [phone] () [phone]: Payer Benefit Plan / Group Subscriber ID Effective Dates Phone Address Type MILAN REYNOSOURCE xxxxxxxxxxx 2018-Present CARESORAMBO CARESOURCE xxxxxxxxxxx 2018-Present ENCOUNTER GUARANTOR PAYER SUBSCRIBER SOURCE 02/17/2019 ALEX Watkins Primary ALEX ROOTDDOB: Insurance:CARESOURCE KENNARDDOB: Hospita l Policy Number: [id number] [facility] [id number] [place], [place] Date:2237-30-91IO [place], [place] [address]Ikl: ([phone]) [address] [place] [address]Rkg: (HP) [phone]: () [phone] 01/27/2019 ALEX Watkins Primary ALEX ROOTDDOB: Insurance:CARESOURCE KENNARDDOB: Hospita l Policy Number: [id number] [facility] [id number] [place], [place] Date:8621-89-21CP [place], [place] [address]Mld: (419) [address], [place] [address]Bik: () [phone]: () [phone] 01/04/2019 ALEX Watkins Primary ALEX ROOTDDOB: Insurance:CARESOURCE KENNARDDOB: Hospita l Policy Number: [id number] [place], [place] [id number] [place] [address]Ibd: (419) Date:0173-14-08XQ [place], [place] [phone] (HP) [address], [place] [address]Xmi: [phone]: (HP) [phone] 08/10/2018 ALEX Watkins Primary ALEX ROOTDDOB: Insurance:CARESOURCE KENNARDDOB: Hospita l Policy Number: [id number] [facility] [id number] [place], [place] Date:2966-21-68TE [place], [place] [address]Uen: 999) [address], [place] [address]Ujq: (HP) [phone]: (HP) [phone] 03/29/2018 ALEX Watkins Primary ALEX ROOTDDOB: Insurance:CARESOURCE KENNARDDOB: Hospita l Policy Number: [id number] [facility] [id number], [place] Date:0588-44-43ABQBP [place], [place] [address]Jng: ([phone]) [address] [address]Unf: (HP) [address] [place], [place] [phone] (HP) [address]GN: ENCOUNTER GUARANTOR PAYER SUBSCRIBER SOURCE 03/13/2019 ALEX Primary ALEX ROOTDDOB: [facility] [id number] STATE [facility] [id number] Hospital Repository [address] [place] [address] Number: [facility] [address] [place] [address]Nwh: [phone]) [id number] [place], [place] [address] [phone] (HP) ve Date:3624-16-90HY [address], [place] [address]UK: 03/13/2019 Secondary ALEX Barba [facility] Insurance:[facility] Repo sitory PAYPolicy Number: Effective Date:2019-03-13 03/11/2019 ALEX Primary [facility]OTDDOB[facility] Insurance:CAREUR [id number] Hospital Repository [address] [place], CEPolicy Number: [facility] [address] [place] [address]Wyz: (046) [id number] [place] [address] [phone] (HP) ve Date:4512-54-53JT [address] [place] [address]HM: 03/11/2019 Secondary ALEX Watkins [facility] Insurance:SELF [facility] Repo sitory PAYPolicy Number: Effective Date:2019-03-11 ENCOUNTER GUARANTOR PAYER SUBSCRIBER SOURCE 03/08/2019 ALEX Watkins Primary ALEX Watkins [facility] KENNARDDOB: Insurance:CARESOU KENNARDDOB: Health [facility] RCEPolicy Number: [id number] KITTY HAWK [id number], [place] [address]Xcd: ([phone]) Date:9364-43-27MA [address]Odm: () [address] [phone] () [place] [address]ED: 03/06/2019 ALEX Watkins Primary ALEX Watkins [facility] KENNARDDOB: Insurance:CARESOU KENNARDDOB: Health [facility] RCEPolicy Number: [id number] KITTY HAWK [id number], [place] [address]Kkd: (419) Date:3480-34-53AY [address]Vop: (HP) [address], [phone] () [place] [address]XN: Payer Benefit Plan / Group Subscriber ID Effective Dates Phone Address Type CARESOURCE CARESOURCE xxxxxxxxxxx 2018-Present Payer Benefit Plan / Group Subscriber ID Effective Dates Phone Address Type OD OD 2019-2019 CARESOURCE CARESOURCE xxxxxxxxxxx 2018-Present CARESOURCE CARESOURCE xxxxxxxxxxx 2018-Present ENCOUNTER GUARANTOR PAYER SUBSCRIBER SOURCE 2018 ALEX BEGUMOB: Primary ALEX BEGUMOB: O [facility] Insurance:[facility] [id number] RCEPolicy Number: KITTY HAWK Medical Ce nter [place] [id number] [place] Reposi tory [address]Kte: (000) marty [address]Tdt: (HP) Date:3288-14-50Eq 000-0000 (HP) an Name:CAID No Payer Records Found Social History Type Social History Date Location Description Tobacco smoking status Current every day smoker 06-26-2017 - [facility] (31941) MEIS 04-08-2019 Cigarettes smoked 06-26-2017 - [facility] (43 215) current (pack per day) - 04-08-2019 Reported Sex Assigned At Not on file [facility] (74816) The following information is from the original human readable content Tobacco Use Types Packs/Day Years Used Date Current Every Day Smoker 1 13 Alcohol Use Drinks/Week oz/Week Comments No Sex Assigned at Date Recorded Not on file Tobacco Use Types Packs/Day Years Used Date Current Every Day Smoker Cigarettes 0.5 Smokeless Tobacco: Former User Chew Sex Assigned at Date Recorded Not on file Sex Assigned at Date Recorded Not on file Sex Assigned at Date Recorded Not on file Tobacco Use Types Packs/Day Years Used Date Current Every Day Smoker Cigarettes 0.5 Smokeless Tobacco: Former User Chew Alcohol Use Drinks/Week oz/Week Comments No Job Start Date Occupation Industry Not on file Not on file Not on file Travel History Travel Start Travel End No recent travel history available. Tobacco Use Types Packs/Day Years Used Date Current Every Day Smoker 1 13 Smokeless Tobacco: Never Used Sex Assigned at Date Recorded Not on file Job Start Date Occupation Industry Not on file Not on file Not on file Sex Assigned at Date Recorded Not on file Job Start Date Occupation Industry Not on file Not on file Not on file Tobacco Use Types Packs/Day Years Used Date Current Every Day Smoker Cigarettes 0.5 Smokeless Tobacco: Former User Chew Alcohol Use Drinks/Week oz/Week Comments No Sex Assigned at Date Recorded Not on file Job Start Date Occupation Industry Not on file Not on file Not on file Travel History Travel Start Travel End No recent travel history available. Sex Assigned at Date Recorded Not on file Job Start Date Occupation Industry Not on file Not on file Not on file No Social History Records Found Summary Purpose DATE CREATED AUTHOR AUTHOR'S ORGANIZATIO N 02/15/2019 [facility] Diagnosis Chronic hepatitis C with hepatic coma (H CC) - Primary Chronic hepatitis C with hepatic coma Seizures (HCC) Other convulsions DATE CREATED AUTHOR AUTHOR'S ORGANIZATIO N 05/21/[address] [facility] DATE CREATED AUTHOR AUTHOR'S ORGANIZATIO N 05/29/2018 [facility] Reason Comments Medication Management opioid dependence Diagnosis Opioid dependence in remission - Primary Opioid type dependence, in remission Encounter for long-term opiate analgesic use Encounter for long-term (current) use of other medications Depression, unspecified depression type Reason Comments Other Reason Comments Medication Management DATE CREATED AUTHOR AUTHOR'S ORGANIZATIO N 01/14/2019 [facility] Reason Comments Altered Mental Status Diagnosis Medication refill - Primary Issue of repeat prescriptions Seizure disorder (HCC) Unspecified epilepsy without mention of intractable epilepsy DATE CREATED AUTHOR AUTHOR'S ORGANIZATIO N 05/20/2018 [facility] DATE CREATED AUTHOR AUTHOR'S ORGANIZATIO N 02/16/2019 [facility] DATE CREATED AUTHOR AUTHOR'S ORGANIZATIO N [facility] AUTHOR'S ORGANIZATIO N 03/16/2019 [facility] DATE CREATED AUTHOR AUTHOR'S ORGANIZATIO N 03/16/2019 [facility] Status Reason Specialty Diagnoses / Procedures Referred By Segun espino To Contact Contact New Request Procedures Brian Gannon, INPATIENT ADMISSION NOTIFICATION [address] [place], [place] [address] Reason Comments Foreign Body Swallowed pt c/o LLQ pain after swallo wing a flexible pen 10 days ago. Diagnosis Swallowed foreign body, initial encounte r - Primary DATE CREATED AUTHOR AUTHOR'S ORGANIZATIO N 04/18/[address] [facility] DATE CREATED AUTHOR AUTHOR'S ORGANIZATIO N 05/03/2019 [facility] Family History No Family History Records Found Advance Directives Patient has advance care planning documents on file. For more information, please contact:[address] [phone] Advanced Directives Records Found Instructions Diagnosis Chronic hepatitis C with hepatic coma (H CC) - Primary Chronic hepatitis C with hepatic coma Seizures (HCC) Other convulsions Assessments Diagnosis Swallowed foreign body, initial encounte r - Primary documented in this encounter Diagnosis Medication refill - Primary Issue of repeat prescriptions Seizure disorder (HCC) Unspecified epilepsy without mention of intractable epilepsy in this encounter Diagnosis Opioid dependence in remission - Primary Opioid type dependence, in remission Encounter for long-term opiate analgesic use Encounter for long-term (current) use of other medications Depression, unspecified depression type Diagnosis Chronic hepatitis C with hepatic coma (H CC) - Primary Chronic hepatitis C with hepatic coma Seizures (HCC) Other convulsions in this encounter History of Present Illness Roel Giron MD - 10/14/2018 7:20 AM ESTFormatting of this note may be different from the original. Follow Up Visit Alex Erwin [id number] 10/14/2018 Chief Complaint Patient presents with ? Medication Management opioid dependence History of Present Illness: Alex Erwin is a 38 y.o. male presenting for follow up of Pt here for a refill on his suboxone, no aberrant behavior and no relapse since last visit, has been in a [facility], going back there after today's appt History: Past Medical History: Diagnosis Date ? Arthritis ? Depression ? Seizure Past Surgical History: Procedure Laterality Date ? TONSILLECTOMY Done as child. Family History Problem Relation Age of Onset ? Mental Illness Father ? Other - Specify Father Colon Cancer ? Cancer- Other Father ? Cancer- Other Paternal Grandmother ? Hypertension Paternal Grandmother Social History Social History ? Marital status: Single Spouse name: N/A ? Number of children: N/A ? Years of education: N/A Social History Main Topics ? Smoking status: Current Every Day Smoker Packs/day: 0.50 Types: Cigarettes ? Smokeless tobacco: Former User Types: Chew ? Alcohol use No ? Drug use: Yes Types: Methamphetamines, Opiates Comment: yes, heroin and meth in the last week states that he had no suboxone ? Sexual activity: Yes Partners: Female control/ protection: None Other Topics Concern ? Not on file Social History Narrative ? No narrative on file History Smoking Status ? Current Every Day Smoker ? Packs/day: 0.50 ? Types: Cigarettes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
== END 2019-02-21 10:50 | DRG 773 ==
PROVIDERS: Admitting Provider Internal Medicine; Referring Provider Internal Medicine; Visit Provider Internal Medicine
DX: F11.23 Opioid dependence with withdrawal (principal); F13.239 Sedative, hypnotic or anxiolytic dependence with withdrawal, unspecified; G40.909 Epilepsy, unspecified, not intractable, without status epilepticus; F17.210 Nicotine dependence, cigarettes, uncomplicated; F15.10 Other stimulant abuse, uncomplicated; F31.81 Bipolar II disorder; B15.9 Hepatitis A without hepatic coma; Z79.899 Other long term (current) drug therapy; Z59.0 Homelessness; B18.2 Chronic viral hepatitis C
CPT/HCPCS: 36415; 80053; 80307; 85025; 86704; 86705; 86706; 86708; 86709; 86803; 87340; 97802; 99218; G0378; G0379